=== PATIENT | male | born 1965 | race Two or more races ===

== ENCOUNTER 2020-08-06 18:12 | Inpatient (IN) | payer MEDICAID ==
[~2020-08-06] VITALS: Ht 182.9 cm; Wt 86.2 kg
[2020-08-06] MEDS ORDERED: METF-440 PO (19:16)
[2020-08-06] MEDS ORDERED: ZINC220C6 PO (19:16)
[2020-08-06] MEDS ORDERED: BISA10SU11 RC (19:16)
[2020-08-06] MEDS ORDERED: ACET-868 PO (19:16)
[2020-08-06] MEDS ORDERED: TEMA22.5 PO (19:16)
[2020-08-06] MEDS ORDERED: ASCO-352 PO (19:16)
[2020-08-06] MEDS ORDERED: CRAN450C PO (19:16)
[2020-08-06] MEDS ORDERED: ACET-2605 PO (19:16)
[2020-08-06] MEDS ORDERED: AMIN30LI2 PO (19:16)
[2020-08-06] MEDS ORDERED: INSU100V39 SQ (19:16)
[2020-08-06] MEDS ORDERED: SENN-261 PO (19:16)
[2020-08-06] MEDS ORDERED: MULT-447 PO (19:16)
[2020-08-06] MEDS ORDERED: POLY17PO4 PO (19:16)
[2020-08-06] MEDS ORDERED: NA P133E RC (19:16)
[2020-08-06] MEDS ORDERED: METH10TA2 PO (19:16)
[2020-08-06] MEDS ORDERED: CEFEPIME 1 GM in IV D5W 50 ML IV ONE (19:30)
[2020-08-06] MEDS ORDERED: VANCOMYCIN 1 GM in IV D5W 250 ML IV ONE (19:30)
[2020-08-06] MEDS ORDERED: DEXAMETHASONE SOD PHOSPHATE 10 MG/ML VIAL IV ONE (19:30)
[2020-08-06 19:31] LABS: ABG OXYGEN SATURATION 99.4 % (92.0-98.5); ABG PCO2 34.2 mmHg (35.0-45.0); ABG PH 6.828 (7.350-7.450); ABG PO2 317.9 mmHg (75.0-100.0); AaDO2 360.9 mmHg; COHb 0.7 % (0.5-1.5); O2Hb 98.7 % (94.0-97.0); SITE, ABG Left Radial
[2020-08-06] MEDS ORDERED: SODIUM BICARBONATE SYR 50 MEQ/50 ML DISP.SYRIN ONE ×2 (19:39→23:53)
[2020-08-06 19:42] LABS: BASOPHILS # (AUTO) 0.1 /CMM (0.0-0.2); BASOPHILS % (AUTO) 0.4 % (0.0-2.0)
[2020-08-06] MEDS ORDERED: DEXAMETHASONE SOD PHOSPHATE 10 MG/ML VIAL ONE (19:44)
[2020-08-06 19:45] LABS: BILIRUBIN,URINE MODERATE (NEGATIVE); COLOR,URINE YELLOW (YELLOW); LEUKOCYTE ESTERASE ,URINE MODERATE (NEGATIVE); NITRITE, URINE POSITIVE (NEGATIVE); PH,URINE 6.5 (5.0-8.0); PROTEIN,URINE 100 mg/dl (NEGATIVE); UGLUCOSE 100 MG/DL mg/dL (NEGATIVE); UROBILINOGEN,URINE 0.2 EU/dL (0.2)
[2020-08-06] MEDS ORDERED: CEFEPIME 1 GM VIAL ONE (19:45)
[2020-08-06] MEDS ORDERED: VANCOMYCIN 1 GM VIAL ONE (19:45)
[2020-08-06 19:49] LABS: HEMATOCRIT 28 % (39-51); HEMOGLOBIN 8.1 g/dL (13.5-17.5); LYMPHOCYTES # (AUTO) 1.1 /CMM (0.8-4.8); LYMPHOCYTES % (AUTO) 3.9 % (20.0-44.0); MEAN CORPUSCULAR HGB CONC 29 g/dl (31.0-36.0); MEAN CORPUSCULAR VOLUME 98 fL (80-96); MONOCYTES # (AUTO) 0.6 /CMM (0.1-1.30); MONOCYTES % (AUTO) 2.2 % (2.0-12.0); NEUTROPHILS # (AUTO) 26.3 /CMM (1.8-8.9); NEUTROPHILS % (AUTO) 93.5 % (43.0-81.0); PLATELET COUNT (AUTO) 460 /CMM (150-450); RED BLOOD CELL COUNT(AUTO) 2.89 MIL/uL (4.5-6.0); WHITE BLOOD COUNT (AUTO) 28.1 K/uL (4.3-11.0)
[2020-08-06] MEDS ORDERED: SODIUM BICARBONATE SYR 50 MEQ/50 ML DISP.SYRIN IV ONE (20:00)
[2020-08-06 20:04] LABS: WBC,URINE TOO NUMEROUS TO COUN /HPF (0-3)
[2020-08-06 20:05] LABS: BACTERIA,URINE 2+ /HPF (None Seen); SQUAMOUS EPITHELIAL CELL,UR Rare /HPF (None Seen)
[2020-08-06 20:07] LABS: ALANINE AMINOTRANSFERASE 22 U/L (12-78); ALBUMIN 1.5 g/dL (3.4-5.0); ALKALINE PHOSPHATASE 101 U/L (46-116); ASPARTATE AMINOTRANSFERASE 41 U/L (15-37); BILIRUBIN,DIRECT 0.2 mg/dL (0.0-0.2); BILIRUBIN,TOTAL 0.5 mg/dL (0.2-1.0); CALCIUM, SERUM 8.8 mg/dL (8.5-10.1); CHLORIDE 92 mmol/L (98-107); GLUCOSE 240 mg/dL (74-106); SODIUM SERUM 134 mmol/L (136-145); TOTAL PROTEIN, SERUM 5.3 g/dL (6.4-8.2)
--- NOTE | 2020-08-06 20:10 | NUR ---
221 BUN 8.2 K 10 CR
[2020-08-06 20:11] LABS: POTASSIUM 8.2 mmol/L (3.5-5.1)
[2020-08-06 20:12] LABS: CARBON DIOXIDE 10 mmol/L (21-32); UREA NITROGEN, BLOOD 221 mg/dL (7-18)
[2020-08-06] MEDS ORDERED: CALCIUM CHLORIDE 1,000 MG/10 ML DISP.SYRIN IV ONE (20:30)
[2020-08-06] MEDS ORDERED: INSULIN REGULAR, HUMAN 100 UNIT/ML 10 ML VIAL IV ONE (20:30)
[2020-08-06] MEDS ORDERED: DEXTROSE 50%-WATER 50 ML DISP.SYRIN IVP ONE (20:30)
[2020-08-06] MEDS ORDERED: NOREPINEPHRINE 8 MG in IV NS 0.9% 242 ML IV STA (20:33)
--- NOTE | 2020-08-06 20:34 | NUR ---
dr. mera aware of pt current vitals
[2020-08-06] MEDS ORDERED: CALCIUM CHLORIDE 1,000 MG/10 ML DISP.SYRIN ONE (20:37)
[2020-08-06] MEDS ORDERED: DEXTROSE 50%-WATER 50 ML DISP.SYRIN ONE (20:37)
[2020-08-06] MEDS ORDERED: INSULIN REGULAR, HUMAN 100 UNIT/ML 10 ML VIAL ONE (20:38)
--- NOTE | 2020-08-06 20:47 | NUR ---
LAB CALLED REGARDING NEGATIVE COVID RESULT.
[2020-08-06] MEDS ORDERED: NOREPINEPHRINE 4 MG/4 ML AMPUL IV ONE (20:49)
--- NOTE | 2020-08-06 20:51 | NUR ---
FEMI COLBERT PAGED PER ER ORDER.
--- NOTE | 2020-08-06 20:57 | NUR ---
DAKOTA GODINEZ TALKING TO DR. KAHN REGARDING PT.
--- NOTE | 2020-08-06 21:06 | NUR ---
DAKOTA GODINEZ TALKING TO DR. HYLTON REGARDING PT.
--- NOTE | 2020-08-06 21:09 | NUR ---
DR. GREENE SPEAKING WITH DR. ARREAGA
[2020-08-06] MEDS ORDERED: HEPARIN SODIUM, PORCINE 5000 UNITS/1 ML VIAL ONE (21:13)
--- NOTE | 2020-08-06 21:24 | NUR ---
STOOL SAMPLE SENT TO LAB
[2020-08-06] MEDS ORDERED: IV NS 0.9% 1,000 ML BAG IV ONE (21:30)
[2020-08-06 21:48] LABS: OCCULT BLOOD STOOL POSITIVE (NEGATIVE)
[2020-08-06] MEDS ORDERED: VASOPRESSIN INJ 40 UNIT in IV NS 0.9% 38 ML IV STA (22:04)
[2020-08-06] MEDS ORDERED: PHENYLEPHRINE 50 MG in IV NS 0.9% 245 ML IV STA (22:04)
--- NOTE | 2020-08-06 22:16 | NUR ---
US AT [facility].
--- NOTE | 2020-08-06 22:22 | NUR ---
REPORT GIVEN TO LANCE AT ICU
--- NOTE | 2020-08-06 22:26 | NUR ---
US TECH AT BED SIDE
--- NOTE | 2020-08-06 22:30 | NUR ---
PLAYGROUND EQUIPMENT ERECTOR, RECEIVED THE PT FROM ER VIA RNEY. PT IS ORALLY INTUBATED, DOES NOT FOLLOW COMMANDS. PT IS VERY UNSTABLE. ACCORDING TO THE GENERATION ENGINEERING TECHNOLOGIST PT HAS SACRUM AND [id number] WOUND. PT IS VERY UNSTABLE, NOT TURN THE PT. ETT 7.5,[id number].,AC 16,TV 500. FIO2 100, SAT 95%. HARDWOOD FLOORING SPECIALIST SHOWING S TACH. FC PATENT. HEMATURIA PRESENT. WILL CONTINUE TO MONITOR VITALS.
--- NOTE | 2020-08-06 22:31 | NUR ---
DR LOZADA (HOSPITALIST) AT BED SIDE
--- NOTE | 2020-08-06 22:45 | NUR ---
10MG OF ETOMIDATE FOLLOWED BY 80MG OF ROCURINIUM GIVEN IV PER DR. GREENE'S ORDER AT BED SIDE FOR INTUBATION
--- NOTE | 2020-08-06 22:55 | NUR ---
RT NOTES PT ORALLY INTUBATED BY DR GREENE WITH 7.5 ETT SECURED AT 23CM AT THE LIP LINE. PT PLACED ON [facility] VENT ON ORDERED SETTINGS AC MODE, RATE 16, VT 500, FIO2 100%, PEEP +5. HEAT AND VENT AIRCRAFT MECHANIC DONE. EQUAL CHEST RISE NOTED, MIST IN TUBE NOTED. ALARMS SET AND AUDIBLE. AMBUBAG AT BEDSIDE. VENT PLUGGED INTO RED OUTLET. WILL CONT TO MONITOR. Addendum: 08/07/20 at 0054 by ROSSANA RAI RT Amended: Links added.
--- NOTE | 2020-08-06 22:58 | NUR ---
OG INSERTED W/ GASTRIC JUICE REDRAW
--- NOTE | 2020-08-06 22:59 | NUR ---
XR AT BED SIDE.
[2020-08-06] MEDS ORDERED: MORPHINE SULFATE INJ 2 MG/ML DISP.SYRIN IV PRN (23:00)
[2020-08-06] MEDS ORDERED: Z GUARD REMEDY 2 OZ OINT TP PRN (23:00)
[2020-08-06] MEDS ORDERED: DEXTROSE 50%-WATER 50 ML DISP.SYRIN IV PRN (23:00)
[2020-08-06] MEDS ORDERED: IV D5/ 0.9% NACL 1,000 ML IV PRN (23:00)
[2020-08-06] MEDS ORDERED: ONDANSETRON HCL/PF 4 MG/2 ML VIAL IVP PRN (23:00)
[2020-08-06] MEDS ORDERED: ACETAMINOPHEN 650 MG/SUPP.RECT RC PRN (23:00)
--- NOTE | 2020-08-06 23:05 | NUR ---
DR ROBERSON APPROVED OG AND ET PLACEMENT ON CXR
--- NOTE | 2020-08-06 23:23 | NUR ---
PT WAS TRANSFERRED TO ICU UNDER ACLS
[2020-08-06] MEDS ORDERED: PHENYLEPHRINE 10 MG/ML VIAL ONE (23:34)
[2020-08-07] VITALS (90 sets, daily range): BP systolic 64–149; BP diastolic 15–76
[2020-08-07] MEDS ORDERED: VASOPRESSIN INJ 20 UNIT/ML VIAL ONE (00:11)
[2020-08-07 00:23] LABS: ABG BASE EXCESS -19.8 mmol/L; ABG OXYGEN SATURATION 96.3 % (92.0-98.5); ABG PCO2 53.6 mmHg (35.0-45.0); ABG PH 6.936 (7.350-7.450); ABG PO2 124.2 mmHg (75.0-100.0); AaDO2 535.2 mmHg; COHb 1.1 % (0.5-1.5); MetHb 0.2 % (0.0-1.5); SITE, ABG Left Radial; VENT MODE, BG AC 16 500 100% +5
[2020-08-07] MEDS: Sodium Bicarbonate 150 MEQ in IV D5W 1,000 ML IV PRN ×2 (00:27→10:54)
[2020-08-07] MEDS ORDERED: NOREPINEPHRINE 4 MG/4 ML AMPUL IV ONE (00:45)
[2020-08-07] MEDS: NOREPINEPHRINE 32 MG in IV NS 0.9% 218 ML IV PRN ×2 (01:10→12:41)
[2020-08-07] MEDS: INSULIN REGULAR, HUMAN 100 UNIT/ML 3 ML VIAL SQ PRN ×3 (01:29→18:08)
[2020-08-07 01:54] LABS: CALCIUM, SERUM 7.6 mg/dL (8.5-10.1)
[2020-08-07 01:59] LABS: POTASSIUM 6.8 mmol/L (3.5-5.1)
[2020-08-07 02:00] LABS: CREATININE 7.6 mg/dL (0.6-1.3)
[2020-08-07] MEDS ORDERED: INSULIN REGULAR, HUMAN 100 UNIT/ML 3 ML VIAL IV ONE ×2 (03:00→06:30)
[2020-08-07] MEDS ORDERED: PHENYLEPHRINE 10 MG/ML VIAL ONE (03:36)
[2020-08-07] MEDS: PHENYLEPHRINE 100 MG in IV NS 0.9% 240 ML IV PRN ×3 (03:49→20:36)
[2020-08-07 04:50] LABS: BASOPHILS # (AUTO) 0.1 /CMM (0.0-0.2); BASOPHILS % (AUTO) 0.4 % (0.0-2.0); EOSINOPHILS % (AUTO) 0.6 % (0.0-6.0); HEMATOCRIT 23 % (39-51); LYMPHOCYTES # (AUTO) 0.8 /CMM (0.8-4.8); MEAN CORPUSCULAR HGB CONC 30 g/dl (31.0-36.0); MEAN CORPUSCULAR VOLUME 97 fL (80-96); MONOCYTES # (AUTO) 0.6 /CMM (0.1-1.30); MONOCYTES % (AUTO) 2.1 % (2.0-12.0); NEUTROPHILS # (AUTO) 25.6 /CMM (1.8-8.9); NEUTROPHILS % (AUTO) 93.9 % (43.0-81.0); PLATELET COUNT (AUTO) 336 /CMM (150-450); RED BLOOD CELL COUNT(AUTO) 2.42 MIL/uL (4.5-6.0); WHITE BLOOD COUNT (AUTO) 27.2 K/uL (4.3-11.0)
[2020-08-07 04:54] LABS: HEMOGLOBIN 6.9 g/dL (13.5-17.5)
[2020-08-07 05:16] LABS: CALCIUM, SERUM 7.9 mg/dL (8.5-10.1); MAGNESIUM 2.5 mg/dL (1.8-2.4); THYROID STIMULATING HORMONE 0.395 uIU/mL (0.358-3.74)
[2020-08-07 05:29] LABS: BAND % (MANUAL) 4 % (0.0-5.0); LYMPHOCYTES % (MANUAL) 4 % (16-48); MONOCYTES % (MANUAL) 6 % (0-11.0); NEUTROPHILS % (MANUAL) 86 (42-76)
--- NOTE | 2020-08-07 05:32 | NUR ---
RT NOTE LATE ENTRY: ETT advanced + 3CM per MD orders. ETT TUBE SECURED AT 26CM Addendum: 08/07/20 at 0532 by SEGUN VARNER RT Amended: Links added.
[2020-08-07 05:33] LABS: POTASSIUM 7.3 mmol/L (3.5-5.1)
[2020-08-07 05:34] LABS: CREATININE 7.5 mg/dL (0.6-1.3)
[2020-08-07] MEDS: BLOOD SUGAR DIAGNOSTIC 1 EACH STRIP IN SCH ×4 (06:27→18:06)
--- NOTE | 2020-08-07 07:05 | NUR ---
superintendent horticulture, on admission not taken the picture. because pt was very unstable with 3 pressers. endorse to day shift RN. IF POSSIBLE TAKE PICTURE
[2020-08-07] MEDS ORDERED: INSULIN REGULAR, HUMAN 100 UNIT/ML 3 ML VIAL IV SCH (07:30)
--- NOTE | 2020-08-07 08:02 | NUR ---
CHEMICAL MACHINE TENDER. S/P INTUBATION ABG RESULT MD LOZADA MADE AWARE
--- NOTE | 2020-08-07 08:05 | NUR ---
UNION STEWARD. ETT 3CMS ADJUSTED.
[2020-08-07] MEDS: PANTOPRAZOLE 40 MG VIAL IV SCH (08:10)
--- NOTE | 2020-08-07 08:42 | NUR ---
WOUND CARE CONSULT: REVIEWED CHART,NURSING DOCUMENTATION AND SPOKE WITH NURSING STAFF AND MRI SPECIAL PROCEDURES TECHNOLOGIST. PT HAS BEEN UNSTABLE TO BE TURNED FOR SKIN ASSESSMENT AND PHOTOS PER MRI SPECIAL PROCEDURES TECHNOLOGIST. RECOMMENDATIONS MADE FOR SKIN PROTECTION. DISCUSSED WITH NURSING STAFF. NURSING STAFF TO ATTEMPT TO SEE PT FOR SKIN ASSESSMENT IF STABLE TO BE TURNED. MD IN AGREEMENT WITH PLAN OF CARE.
[2020-08-07] MEDS ORDERED: CEFEPIME 2 GM in IV D5W 100 ML IV SCH (09:00)
[2020-08-07] MEDS ORDERED: SODIUM BICARBONATE SYR 50 MEQ/50 ML DISP.SYRIN IV ONE (09:30)
--- NOTE | 2020-08-07 09:45 | NUR ---
RN NOTES DIALYSIS NURSE ON UNIT, CONTINUED THE BLOOD TRANSFUSION THRU DIALYSIS MACHINE BY DIALYSIS NURSE, NO SIGNS OF DISTRESS AT THIS TIME. V/S STABLE WITH 3 PRESSOR. WILL CONTINUE TO MONITOR.
[2020-08-07] MEDS ORDERED: ROCURONIUM BROMIDE 50 MG/5 ML IV ONE (10:09)
[2020-08-07] MEDS ORDERED: ETOMIDATE 2 MG/ML VIAL IV ONE (10:09)
[2020-08-07 10:15] LABS: ABG OXYGEN SATURATION 91.9 % (92.0-98.5); ABG PCO2 40.4 mmHg (35.0-45.0); ABG PH 7.149 (7.350-7.450); ABG PO2 78.9 mmHg (75.0-100.0); AaDO2 593.7 mmHg; COHb 2.2 % (0.5-1.5); MetHb 1.2 % (0.0-1.5); O2Hb 88.8 % (94.0-97.0); PEEP,BG 5 cm H2O; SITE, ABG Right Brachial; VENT MODE, BG AC 100%; VT, ABG 500 mL
--- NOTE | 2020-08-07 10:15 | NUR ---
RN NOTES DIALYSIS NURSE STOPPED THE DIALYSIS WITH NO OUTPUT DUE TO SBP DROPPING TO 70'S AND HR ON 50'S, ALL PRESSORS ON MAX, BLOOD TRANSFUSION DONE. WILL CONTINUE TO MONITOR.
[2020-08-07] MEDS: HYDROCORTISONE SOD SUCCINATE 100 MG/2 ML VIAL IV SCH ×2 (10:29→20:35)
[2020-08-07] MEDS: PROPOFOL 10MG/ML 50ML 50 ML IV PRN ×5 (10:55→22:43)
[2020-08-07] MEDS ORDERED: SODIUM POLYSTYRENE SULFONATE 15 G/60 ML BOTTLE PO ONE ×2 (12:30→14:00)
[2020-08-07 14:11] LABS: D-DIMER 3.97 mg/L(FEU (0.17-0.50)
[2020-08-07] MEDS: Sodium Bicarbonate 100 MEQ in IV 1/2NS 1000 ML 1,000 ML IV PRN (17:36)
[2020-08-07] MEDS: VASOPRESSIN INJ 40 UNIT in IV NS 0.9% 38 ML IV PRN (18:41)
--- NOTE | 2020-08-07 19:49 | NUR ---
IT SECURITY ADMINISTRATOR. INITIAL ASSESSMENT. RECEIVED THE PT REST ON THE BED. ORALLY INTUBATED. SEDATED WITH DIPRIVAN. ETT 7.5,AC 32,LIP 23CM,TV 500,FIO2 80%. SAT 98%. SOCIAL MEDIA MARKETING ANALYST SHOWING S TACH. IV RT AND LT HAND 22 AND 20G. RT FEMORAL HD CATH RT NARE NGT INTACT. CLAMPED. FC PATENT. LEVOPHED 0.2MCG/KG/MIN, ASHWIN 3MCG/KG/MIN,PALAK 0.04 U/HDIPRIVAN 50MCG/KG/MIN,IVF 1/2NS IN 100MEQ BICARB 50ML/H. WILL CONTINUE TO MONITOR VITALS
--- NOTE | 2020-08-07 22:30 | NUR ---
CRAB CATCHER, DAY SHIFT NOT TAKEN PICTURE. PICTURE TAKEN AT 1999. WOUND CONSULTATION AND [employer] MATTRESS ORDERED.
[2020-08-08] VITALS (83 sets, daily range): BP systolic 56–163; BP diastolic 41–115
[2020-08-08] MEDS: INSULIN REGULAR, HUMAN 100 UNIT/ML 3 ML VIAL SQ PRN ×4 (01:28→17:37)
--- NOTE | 2020-08-08 03:01 | NUR ---
TV NEWS DIRECTOR, REMAINING SAME VENT SETTING TOLERATED WELL.WILL CONTINUE TO MONITOR
[2020-08-08] MEDS: PROPOFOL 10MG/ML 50ML 50 ML IV PRN ×6 (04:36→21:44)
[2020-08-08] MEDS: PHENYLEPHRINE 100 MG in IV NS 0.9% 240 ML IV PRN ×3 (04:37→21:45)
[2020-08-08] MEDS: HYDROCORTISONE SOD SUCCINATE 100 MG/2 ML VIAL IV SCH ×3 (04:39→20:58)
[2020-08-08 04:55] LABS: BASOPHILS # (AUTO) 0.1 /CMM (0.0-0.2); BASOPHILS % (AUTO) 0.3 % (0.0-2.0); HEMATOCRIT 23 % (39-51); HEMOGLOBIN 7.9 g/dL (13.5-17.5); LYMPHOCYTES # (AUTO) 0.8 /CMM (0.8-4.8); LYMPHOCYTES % (AUTO) 4.2 % (20.0-44.0); MEAN CORPUSCULAR HGB CONC 35 g/dl (31.0-36.0); MEAN CORPUSCULAR VOLUME 92 fL (80-96); MONOCYTES # (AUTO) 0.8 /CMM (0.1-1.30); NEUTROPHILS % (AUTO) 91.5 % (43.0-81.0); PLATELET COUNT (AUTO) 207 /CMM (150-450); RED BLOOD CELL COUNT(AUTO) 2.47 MIL/uL (4.5-6.0); WHITE BLOOD COUNT (AUTO) 19.7 K/uL (4.3-11.0)
[2020-08-08 05:09] LABS: CALCIUM, SERUM 7.1 mg/dL (8.5-10.1); CREATININE 4.3 mg/dL (0.6-1.3); MAGNESIUM 1.9 mg/dL (1.8-2.4); PHOSPHORUS 3.5 mg/dL (2.5-4.9); POTASSIUM 5.2 mmol/L (3.5-5.1)
--- NOTE | 2020-08-08 06:09 | NUR ---
SPEECH PATHOLOGIST. REMAINING SAME VENT SETTING TOLERATED WELL.AT 98%. NO ACUTE DISTRESS NOTED. SALES REPRESENTATIVE MARINE SUPPLIES SHOWING S TACH.IV RT HAND AND RT FEMORAL HD CATH. ASHWIN ,LEVO, VASO, DIPRIVAN AND BICARB DRIP RUNNING, PALLAVI SOFT WRIST RESTRAINT CHECKED AND RELEASED, NO INJURY OR REDNESS NOTED. FC PATENT. HOB ELEVATED. RT NARE NGT INTACT. WILL CONTINUE TO MONITOR VITALS.
[2020-08-08] MEDS: BLOOD SUGAR DIAGNOSTIC 1 EACH STRIP IN SCH ×4 (06:18→17:36)
[2020-08-08] MEDS: VASOPRESSIN INJ 40 UNIT in IV NS 0.9% 38 ML IV PRN ×2 (06:33→10:40)
--- NOTE | 2020-08-08 06:36 | NUR ---
GRAZING AIDE, RADIOLOGY CALLED FOR X RAY CRITICAL RESULT LT LARGE PNEUMOTHORAX WITH MEDIASTINUM APPEARING SHIFTED TO THE RT CONCERNING FOR TENSION PNEUMOTHORAX, NOTIFIED MD LOZADA. WAITING FOR CALL BACK
[2020-08-08 07:49] LABS: ABG BASE EXCESS -3.3 mmol/L; ABG OXYGEN SATURATION 99.3 % (92.0-98.5); ABG PCO2 29.4 mmHg (35.0-45.0); ABG PH 7.454 (7.350-7.450); ABG PO2 224.4 mmHg (75.0-100.0); AaDO2 315.1 mmHg; COHb 1.4 % (0.5-1.5); MetHb 0.3 % (0.0-1.5); O2Hb 97.6 % (94.0-97.0); PEEP,BG 0 cm H2O; SITE, ABG Right Radial; VT, ABG 500 mL
--- NOTE | 2020-08-08 07:54 | NUR ---
WOUND CARE CONSULT: REVIEWED CHART, NURSING DOCUMENTATION AND PHOTOS WHICH INDICATE LARGE FULL THICKNESS WOUNDS TO SACRUM AND RT BUTTOCK(DOCUMENTED STAGE 4 ULCERS PER SENDING FACILITY), WELL DISCOLORATION/DEEP TISSUE INJURIES TO OCCIPITAL AREA, LEFT ARM AND RT SHOULDER, ALL PRESENT ON ADMISSION. RECOMMEND SURGICAL CONSULT. DR ROBERTO NOTIFIED OF CONSULT REQUEST. ALL SKIN PROTECTION RECOMMENDATIONS DISCUSSED WITH NURSING STAFF INCLUDING FIRST STEP LOW AIRLOSS MATTRESS (ON ORDER). MD IN AGREEMENT WITH PLAN OF CARE.
[2020-08-08] MEDS: NOREPINEPHRINE 32 MG in IV NS 0.9% 218 ML IV PRN (08:21)
[2020-08-08] MEDS: CEFEPIME 1 GM in IV D5W 50 ML IV SCH (08:36)
[2020-08-08] MEDS: PANTOPRAZOLE 40 MG VIAL IV SCH (08:36)
[2020-08-08] MEDS: Sodium Bicarbonate 100 MEQ in IV 1/2NS 1000 ML 1,000 ML IV PRN (09:26)
--- NOTE | 2020-08-08 09:27 | NUR ---
SS consult requested for this patient due to lack of responsible libertarian. JENN spoke with the pt.'s nurse, Shana who stated no responsible libertarian has been calling for this pt. JENN called the pt.'s "counselor" Maxine Palenciaoz [phone] who is on the facesheet and left voicemail with JENN call back number. JENN called [facility] [[address] [place], [address] ] and requested to speak to a nurse or admitting to gather responsible libertarian info. However, SW was put on hold and never transferred, no option to leave voicemail. JENN called the Public Guardian;s Office and spoke to Officer on Duty, Myla [phone] to make a referral for probate conservatorship. Myla faxed JENN referral forms. This JENN or Elizabeth BARAJAS to complete and fax back to [phone] Attn: Court Services Unit. JENN to mail original forms to Office of the Public Guardian [address] [place] [phone] Attn: Court Services Unit. SW will be available as needed.
--- NOTE | 2020-08-08 13:03 | NUR ---
JENN left a message with [employer] hotel or motel receptionist at [facility] for an ambulatory services representative from [facility] to return a call to this SW regarding this patient.
[2020-08-08] MEDS ORDERED: ADENOSINE 6 MG/2 ML VIAL IVP ONE (13:30)
[2020-08-08] MEDS ORDERED: DILTIAZEM HCL IV 125 MG in IV NS 0.9% 100 ML IV PRN (14:00)
[2020-08-08] MEDS ORDERED: DILTIAZEM HCL 50 MG IV IV ONE (14:00)
--- NOTE | 2020-08-08 14:17 | NUR ---
JENN contacted Brittany BARAJAS at [facility] regarding this patient. Brittany BARAJAS informed this JENN that Brittany would make calls to patient's contacts to attempt to find next of kin on behalf of this SW. Brittany stated that she would give this SW a call back with more information. JENN remains available for all needs regarding this patient.
--- NOTE | 2020-08-08 14:35 | NUR ---
This JENN was contacted by Brittany BARAJAS at [facility] regarding this patient. Per Brittany, patient has a brother by the name of Ángel Keys and Yvonne (ex-) . Per Brittany, patient is legally from [place]. JENN left a voicemail for Ángel Keys with this SW contact information. Plan: JENN will follow-up with Ángel if there is no follow-up. JENN remains available for all needs regarding this patient.
--- NOTE | 2020-08-08 17:00 | NUR ---
RN NOTES 6675 CARDIOVERSION DONE. PT SEDATED. P[T CONVERTED TO SINUS RHYTHM. WILL CLOSELY MONITOR
[2020-08-08] MEDS: DAKINS QUARTER STRENGTH (0.125%) 480 ML BOTTLE TOP SCH (18:30)
--- NOTE | 2020-08-08 19:00 | NUR ---
RN CLOSING NOTES PT REMAINS INTUBATED, ON VENT. NO RESPIRATORY DISTRESS NOTED. PICC LINE IN PLACE. REMAINS ON LEVOPHED, ASHWIN AND VASO DRIP. TITRATED ACCORDINGLY. CHEST TUBE IN PLACE. KEPT COMFORTABLE. WILL ENDORSE FOR CONTINUITY OF CARE.
[2020-08-08] MEDS ORDERED: VANCOMYCIN 0.75 GM in IV D5W 250 ML IV SCH ×4 (20:00)
--- NOTE | 2020-08-08 20:54 | NUR ---
REHAB DIRECTOR OCCUPATIONAL THERAPIST NOTES CALLED AND SPOKE TO ADMITTING REGARDING BIRTHDATE DISCREPANCY, LAB UNABLE TO DRAW VANCOMYCIN LEVEL DUE TO DISCREPANCY. PER ADMITTING DEPARTMENT, THEY WILL FIX THE BIRTHDATE AND PRINT OUT A NEW WRISTBAND. LABORATORY MADE AWARE THAT NEW WRISTBAND WILL BE AVAILABLE IN APPROXIMATELY 20 MINUTES
[2020-08-09] VITALS (103 sets, daily range): BP systolic 67–185; BP diastolic 20–116
[2020-08-09] MEDS: BLOOD SUGAR DIAGNOSTIC 1 EACH STRIP IN SCH ×5 (01:50→23:20)
[2020-08-09] MEDS: INSULIN REGULAR, HUMAN 100 UNIT/ML 3 ML VIAL SQ PRN ×5 (01:51→23:22)
[2020-08-09] MEDS: VASOPRESSIN INJ 40 UNIT in IV NS 0.9% 38 ML IV PRN ×2 (01:59→13:56)
[2020-08-09] MEDS: PROPOFOL 10MG/ML 50ML 50 ML IV PRN ×7 (02:30→20:30)
[2020-08-09 04:29] LABS: BASOPHILS % (AUTO) 0.2 % (0.0-2.0); HEMATOCRIT 21 % (39-51); LYMPHOCYTES # (AUTO) 0.5 /CMM (0.8-4.8); LYMPHOCYTES % (AUTO) 2.4 % (20.0-44.0); MEAN CORPUSCULAR VOLUME 92 fL (80-96); MONOCYTES # (AUTO) 0.8 /CMM (0.1-1.30); MONOCYTES % (AUTO) 3.3 % (2.0-12.0); NEUTROPHILS # (AUTO) 21.8 /CMM (1.8-8.9); NEUTROPHILS % (AUTO) 94.1 % (43.0-81.0); PLATELET COUNT (AUTO) 188 /CMM (150-450); RED BLOOD CELL COUNT(AUTO) 2.28 MIL/uL (4.5-6.0); WHITE BLOOD COUNT (AUTO) 23.2 K/uL (4.3-11.0)
[2020-08-09 05:01] LABS: CALCIUM, SERUM 7.1 mg/dL (8.5-10.1); CREATININE 2.5 mg/dL (0.6-1.3); MAGNESIUM 1.9 mg/dL (1.8-2.4); PHOSPHORUS 3.1 mg/dL (2.5-4.9); POTASSIUM 3.5 mmol/L (3.5-5.1)
[2020-08-09 05:22] LABS: MEAN CORPUSCULAR HGB CONC 33 g/dl (31.0-36.0)
[2020-08-09 05:24] LABS: HEMOGLOBIN 6.9 g/dL (13.5-17.5)
[2020-08-09] MEDS: PHENYLEPHRINE 100 MG in IV NS 0.9% 240 ML IV PRN ×2 (05:52→13:56)
[2020-08-09 05:53] LABS: BAND % (MANUAL) 5 % (0.0-5.0); LYMPHOCYTES % (MANUAL) 1 % (16-48); NEUTROPHILS % (MANUAL) 92 (42-76)
[2020-08-09 05:54] LABS: MONOCYTES % (MANUAL) 2 % (0-11.0)
[2020-08-09] MEDS: HYDROCORTISONE SOD SUCCINATE 100 MG/2 ML VIAL IV SCH ×3 (06:09→20:29)
--- NOTE | 2020-08-09 07:15 | NUR ---
RN CLOSING NOTES RECEIVED PT INTUBATED, ON VENT. NO RESPIRATORY DISTRESS NOTED. PICC LINE IN PLACE. REMAINS ON DIPRIVAN, LEVOPHED, ASHWIN AND VASO DRIP. WILL TITRATE ACCORDINGLY. IVF INFUSING. CHEST TUBE IN PLACE. VELEZ IN PLACE. BLE ELEVATED. FOR BLOOD TRANSFUSION 1 UNIT PRBC. WILL MONITOR
[2020-08-09] MEDS: Sodium Bicarbonate 100 MEQ in IV 1/2NS 1000 ML 1,000 ML IV PRN (07:44)
[2020-08-09] MEDS: DAKINS QUARTER STRENGTH (0.125%) 480 ML BOTTLE TOP SCH (08:18)
[2020-08-09] MEDS: CEFEPIME 1 GM in IV D5W 50 ML IV SCH (08:18)
[2020-08-09] MEDS: PANTOPRAZOLE 40 MG VIAL IV SCH (08:18)
[2020-08-09] MEDS: NOREPINEPHRINE 32 MG in IV NS 0.9% 218 ML IV PRN ×2 (09:53→09:58)
[2020-08-09] MEDS ORDERED: MANNITOL 12.5 GM/50 ML VIAL IV ONE (13:00)
[2020-08-09] MEDS: IV 1/2NS 1000 ML 1,000 ML IV PRN (14:09)
--- NOTE | 2020-08-09 16:19 | NUR ---
JENN contacted patient's ex- Yvonne to find information regarding next of kin. Per Yvonne, she and patient have been seperated for 8 years and patient has an 18 year-old son who is currently serving in the [employer]. Yvonne informed this SW that she may be able to contact the son should situation arise however Yvonne would like this to be the last resort. Yvonne informed this SW that the patient does not have a DPOA. Per Yvonne, patient's mother is alive. JENN will follow-up with Ángel Keys patient's brother for this SW to reach out to patient's mother who would be the next of kin should patient's son not be reachable. JENN will provide an update to JENN Weber and JENN Vazquez to follow-up regarding this patient. Director Geothermal Operations remains available for all needs regarding this patient.
--- NOTE | 2020-08-09 16:57 | NUR ---
SW could not reach patient's brother and could not leave a voicemail as mailbox was full. Ángel Keys patient's brother
[2020-08-09] MEDS ORDERED: CEFEPIME 2 GM in IV D5W 100 ML IV SCH (18:00)
--- NOTE | 2020-08-09 18:44 | NUR ---
RN CLOSING NOTES RECEIVED PT INTUBATED, ON VENT. NO RESPIRATORY DISTRESS NOTED. PICC LINE IN PLACE. REMAINS ON DIPRIVAN, LEVOPHED, ASHWIN AND VASO DRIP. TITRATED ACCORDINGLY. IVF INFUSING. CHEST TUBE IN PLACE. VELEZ IN PLACE. BLE ELEVATED. 1 UNIT PRBC GIVEN. NO TRANSFUSION REACTION NOTED. PT DID NOT TOLERATE HEMODIALYSIS. KEPT CLEAN AND DRY. TX PROVIDED ORDERED. BLE ELEVATED. WILL ENDORSE FOR CONTINUITY OF CARE
[2020-08-09] MEDS ORDERED: MEROPENEM 500 MG in IV NS 0.9% 50 ML IV SCH (19:00)
--- NOTE | 2020-08-09 19:30 | NUR ---
SUPERVISOR CAB NOTES RECEIVED PATIENT IN BED, SEDATED ON DIPRIVAN DRI, ORALLY INTUBATED ON MECHANICAL VENTILATION. SR ON MONITOR. VELEZ CATHETER DRAINING DARK YELLOW/GREEN COLORED URINE VIA GRAVITY. LEFT LATERAL CHEST TUBE TO -2OCM H20 SUCTION, NOTED WITH SEROSANGUINEOUS OUTPUT, NO BUBBLING NOTED IN CHAMBER
[2020-08-09] MEDS: MEROPENEM 1 G in IV NS 0.9% 100 ML IV SCH (21:07)
[2020-08-10] VITALS (80 sets, daily range): BP systolic 79–177; BP diastolic 26–117
[2020-08-10] MEDS ORDERED: VANCOMYCIN 1 GM in IV D5W 250 ML IV SCH ×2
[2020-08-10] MEDS: PROPOFOL 10MG/ML 50ML 50 ML IV PRN ×4 (00:32→08:42)
[2020-08-10] MEDS: IV 1/2NS 1000 ML 1,000 ML IV PRN ×3 (00:32→22:28)
--- NOTE | 2020-08-10 02:00 | NUR ---
GLASS FRAME FITTER NOTES FULL BED BATH RENDERED, CHEST TUBE DRESSING CHANGED, NO COMPLICATIONS NOTED, TOELRATED WELL. ON GOING MONITORING
[2020-08-10 04:40] LABS: BASOPHILS # (AUTO) 0.1 /CMM (0.0-0.2); BASOPHILS % (AUTO) 0.2 % (0.0-2.0); EOSINOPHILS % (AUTO) 0.1 % (0.0-6.0); HEMATOCRIT 25 % (39-51); HEMOGLOBIN 8.9 g/dL (13.5-17.5); LYMPHOCYTES # (AUTO) 0.8 /CMM (0.8-4.8); LYMPHOCYTES % (AUTO) 2.7 % (20.0-44.0); MEAN CORPUSCULAR HGB CONC 36 g/dl (31.0-36.0); MEAN CORPUSCULAR VOLUME 91 fL (80-96); MONOCYTES # (AUTO) 0.4 /CMM (0.1-1.30); MONOCYTES % (AUTO) 1.5 % (2.0-12.0); NEUTROPHILS # (AUTO) 27.5 /CMM (1.8-8.9); NEUTROPHILS % (AUTO) 95.5 % (43.0-81.0); PLATELET COUNT (AUTO) 92 /CMM (150-450); WHITE BLOOD COUNT (AUTO) 28.8 K/uL (4.3-11.0)
[2020-08-10 04:55] LABS: CALCIUM, SERUM 6.8 mg/dL (8.5-10.1); CREATININE 1.3 mg/dL (0.6-1.3); MAGNESIUM 1.8 mg/dL (1.8-2.4); PHOSPHORUS 1.9 mg/dL (2.5-4.9)
--- NOTE | 2020-08-10 05:00 | NUR ---
VERTICAL PUNCH OPERATOR NOTES NEOSYNEPHRINE DRIP TITRATED OFF. PATIENT REMAINS ON LEVOPHED AND VASOPRESSIN FOR BP SUPPORT. WILL CONTINUE CLOSE MONITORING
[2020-08-10 05:10] LABS: POTASSIUM 2.7 mmol/L (3.5-5.1)
[2020-08-10 05:29] LABS: LYMPHOCYTES % (MANUAL) 3 % (16-48); MONOCYTES % (MANUAL) 6 % (0-11.0); NEUTROPHILS % (MANUAL) 91 (42-76)
[2020-08-10 06:13] LABS: ABG OXYGEN SATURATION 98.5 % (92.0-98.5); ABG PCO2 30.2 mmHg (35.0-45.0); ABG PH 7.553 (7.350-7.450); ABG PO2 122.6 mmHg (75.0-100.0); AaDO2 199.9 mmHg; COHb 0.8 % (0.5-1.5); MetHb 0.3 % (0.0-1.5); O2Hb 97.4 % (94.0-97.0); PEEP,BG 0 cm H2O; SITE, ABG Right Radial; VENT MODE, BG AC 32 450 50% +0; VT, ABG 450 mL
[2020-08-10] MEDS: INSULIN REGULAR, HUMAN 100 UNIT/ML 3 ML VIAL SQ PRN ×3 (06:22→17:30)
[2020-08-10] MEDS: BLOOD SUGAR DIAGNOSTIC 1 EACH STRIP IN SCH ×3 (06:22→17:31)
[2020-08-10] MEDS: POTASSIUM CL. PREMIX PERIPHER. 50 ML IV SCH ×5 (06:25→10:26)
[2020-08-10] MEDS: HYDROCORTISONE SOD SUCCINATE 100 MG/2 ML VIAL IV SCH ×3 (06:26→21:10)
[2020-08-10] MEDS: VASOPRESSIN INJ 40 UNIT in IV NS 0.9% 38 ML IV PRN (08:06)
--- NOTE | 2020-08-10 08:24 | NUR ---
received pt from night shift manager, sedated on diprivan at 30mcg, SR, intubated, sat well, L chest tube no bobbling noted, f/c good output, HD pt, NG clamped, receiving vaso at 0.04units, and levo at 0.2mcg, v/s stable, no pain, pt turned and repositioned.
[2020-08-10] MEDS: MEROPENEM 1 G in IV NS 0.9% 100 ML IV SCH ×2 (09:16→21:09)
[2020-08-10] MEDS: FAMOTIDINE/PF INJ 20 MG/2 ML VIAL IV SCH ×2 (09:16→21:09)
[2020-08-10] MEDS: DAKINS QUARTER STRENGTH (0.125%) 480 ML BOTTLE TOP SCH (09:17)
--- NOTE | 2020-08-10 10:27 | NUR ---
VENT CHANGES BELOW PER DR. REZA: AC 24 VT 400 Addendum: 08/10/20 at 1028 by ADILIA TOWNSEND RT Amended: Links added.
[2020-08-10] MEDS: NOREPINEPHRINE 32 MG in IV NS 0.9% 218 ML IV PRN (11:34)
[2020-08-10] MEDS ORDERED: POTASSIUM CL. PREMIX PERIPHER. 50 ML IV SCH (12:00)
[2020-08-10] MEDS: PROPOFOL 100 ML IV PRN ×2 (12:36→21:25)
[2020-08-10] MEDS: POTASSIUM PHOSPHATE MM 7.5 MMOL in IV NS 0.9% 100 ML IV SCH ×2 (13:48→17:28)
--- NOTE | 2020-08-10 16:48 | NUR ---
pt is resting in the bed, sedated on Diprivan at 30mcg, SR, SB, receiving levo at 0.2mcg, good urine output, NG clamped, L chest tube intact no bobbling noted, v/s stable, no pain, pt cleaned, changed and repositioned.
[2020-08-10] MEDS: VANCOMYCIN 1 GM in IV D5W 250 ML IV SCH (17:28)
--- NOTE | 2020-08-10 23:52 | NUR ---
FIELD ASSEMBLY SUPERVISOR NOTES PATIENT ON LEVOPHED DRIP @ 0.15MCG/KG/MIN. SBP > 120, BUT HR NOTED TO DROP LOW 45BPM. CLAUDE STARKS, PROMOTION MANAGER NOTIFIED REGARDING HR. PER CLAUDE, START DOPAMINE DRIP TO KEEP SBP >90 AND HR > 60BPM. WILL TRANSITION PATIENT TO DOPAMINE DRIP ORDERED
[2020-08-11] VITALS (88 sets, daily range): BP systolic 46–147; BP diastolic 26–97
[2020-08-11] MEDS ORDERED: DOPamine 400MG/D5W 250ML RTU 250 ML ONE (00:17)
[2020-08-11] MEDS: DOPamine 400 MG in IV D5W 250 ML IV PRN ×4 (00:27→23:31)
[2020-08-11] MEDS: INSULIN REGULAR, HUMAN 100 UNIT/ML 3 ML VIAL SQ PRN ×5 (00:41→23:26)
[2020-08-11] MEDS: BLOOD SUGAR DIAGNOSTIC 1 EACH STRIP IN SCH ×5 (00:45→23:25)
[2020-08-11 05:48] LABS: BASOPHILS # (AUTO) 0.1 /CMM (0.0-0.2); BASOPHILS % (AUTO) 0.3 % (0.0-2.0); HEMATOCRIT 23 % (39-51); HEMOGLOBIN 7.8 g/dL (13.5-17.5); LYMPHOCYTES # (AUTO) 0.4 /CMM (0.8-4.8); LYMPHOCYTES % (AUTO) 1.4 % (20.0-44.0); MEAN CORPUSCULAR HGB CONC 34 g/dl (31.0-36.0); MEAN CORPUSCULAR VOLUME 91 fL (80-96); MONOCYTES # (AUTO) 0.2 /CMM (0.1-1.30); MONOCYTES % (AUTO) 0.8 % (2.0-12.0); NEUTROPHILS # (AUTO) 25.5 /CMM (1.8-8.9); NEUTROPHILS % (AUTO) 97.5 % (43.0-81.0); PLATELET COUNT (AUTO) 62 /CMM (150-450); RED BLOOD CELL COUNT(AUTO) 2.54 MIL/uL (4.5-6.0); WHITE BLOOD COUNT (AUTO) 26.2 K/uL (4.3-11.0)
[2020-08-11 06:05] LABS: BAND % (MANUAL) 9 % (0.0-5.0); EOSINOPHILS % (MANUAL) 2 % (0-4); LYMPHOCYTES % (MANUAL) 2 % (16-48); MONOCYTES % (MANUAL) 2 % (0-11.0); NEUTROPHILS % (MANUAL) 85 (42-76)
[2020-08-11 06:08] LABS: BILIRUBIN,TOTAL 1.2 mg/dL (0.2-1.0); CALCIUM, SERUM 7.4 mg/dL (8.5-10.1); MAGNESIUM 1.7 mg/dL (1.8-2.4); PHOSPHORUS 2.6 mg/dL (2.5-4.9); TOTAL PROTEIN, SERUM 4.4 g/dL (6.4-8.2)
--- NOTE | 2020-08-11 06:30 | NUR ---
CASE ASSEMBLER CLOSING NOTES PATIENT REMAINS ON MECHANICAL VENTILATION VIA ETT, TOLERATING SETTING PRESCRIBED. REMAINS SEDATED ON DIPRIVAN DRIP @ 30 MCG/KG/MIN. PATIENT ALSO ON DOPAMINE DRIP @ 5MCG/KG/MIN. LEFT LATERAL CHEST TUBE REMAINS INTACT, NO LEAK NOTED, TUBING SECURED, 20ML OF SEROUS FLUID OUTPUT THROUGHOUT SHIFT. VELEZ CATHETER DRAINING YELLOW URINE WITH SEDIMENTS VIA GRAVITY
[2020-08-11 06:50] LABS: ALBUMIN 1.1 g/dL (3.4-5.0); POTASSIUM 2.6 mmol/L (3.5-5.1)
[2020-08-11] MEDS: HYDROCORTISONE SOD SUCCINATE 100 MG/2 ML VIAL IV SCH ×3 (07:04→20:38)
[2020-08-11] MEDS: PROPOFOL 100 ML IV PRN ×3 (07:19→21:46)
[2020-08-11] MEDS: IV 1/2NS 1000 ML 1,000 ML IV PRN ×2 (08:03→18:37)
[2020-08-11] MEDS: MEROPENEM 1 G in IV NS 0.9% 100 ML IV SCH ×2 (08:15→20:41)
[2020-08-11] MEDS: FAMOTIDINE/PF INJ 20 MG/2 ML VIAL IV SCH ×2 (09:26→20:39)
[2020-08-11] MEDS: DAKINS QUARTER STRENGTH (0.125%) 480 ML BOTTLE TOP SCH (09:26)
[2020-08-11] MEDS: Magnesium 1GM/D5W 100ML PREMIX 100 ML IV SCH ×2 (10:41→12:06)
[2020-08-11] MEDS ORDERED: POTASSIUM CHLORIDE 20 MEQ TAB.PRT.SR PO ONE (11:00)
--- NOTE | 2020-08-11 11:00 | NUR ---
RN NOTE PATIENT IS OFF OF DIPRIVAN DRIP, TOLERATING WELL, PER DR REZA NO DRIP, WILL COT TO MONITOR
[2020-08-11] MEDS: VANCOMYCIN 1 GM in IV D5W 250 ML IV SCH ×2 (12:06→23:39)
[2020-08-11 12:56] LABS: ABG BASE EXCESS 3.3 mmol/L; ABG OXYGEN SATURATION 96.3 % (92.0-98.5); ABG PCO2 35.9 mmHg (35.0-45.0); ABG PO2 83.9 mmHg (75.0-100.0); AaDO2 232.2 mmHg; COHb 1.3 % (0.5-1.5); MetHb 0.3 % (0.0-1.5); O2Hb 94.8 % (94.0-97.0); SITE, ABG Right Radial; VENT MODE, BG simv 4 400 +5 50% ps15
--- NOTE | 2020-08-11 13:10 | NUR ---
RN NOTE COLLECTION SUPERVISOR AT BED SITE, PROCEDURE INITIATED
--- NOTE | 2020-08-11 13:20 | NUR ---
PATIENT'S BP WENT DOWN TO 74/45, WILL INCREASE DOPAMINE DRIP UNTIL DESIRABLE BP
--- NOTE | 2020-08-11 13:28 | NUR ---
DOPAMINE RATE IS 10 MCG, BP WENT UP TO 89/60 HR 116, DIALYSES IN PROCESS CONT TO MONITOR
[2020-08-11] MEDS ORDERED: IV 1/2NS 1000 ML 1,000 ML IV SCH (13:30)
[2020-08-11] MEDS ORDERED: Magnesium 1GM/D5W 100ML PREMIX 100 ML IV SCH (13:30)
[2020-08-11] MEDS: POTASSIUM CL. PREMIX PERIPHER. 50 ML IV SCH ×4 (13:32→17:55)
--- NOTE | 2020-08-11 13:42 | NUR ---
DIALYSES STOP, PATIENT COULDN'T TOLERATE; HR IS 135, BP 91/59
--- NOTE | 2020-08-11 16:44 | NUR ---
patient back on AC mode on vent , will start propofol according to protocol
[2020-08-11 17:35] LABS: CALCIUM, SERUM 6.5 mg/dL (8.5-10.1); CREATININE 0.9 mg/dL (0.6-1.3)
--- NOTE | 2020-08-11 18:00 | NUR ---
BACK ON PREVIOUS SEDATION RATE @30MCG/KG/MIN OF PROPOFOL, TOLERATINGWELL, CALM , EYES OPEN, RR IS 25
--- NOTE | 2020-08-11 18:55 | NUR ---
RN CLOSING NOTES PATIENT REMAINS IN BED, ON VENT SETTINGS, TOLERATING WELL, NO SOB, SPO2 IS 92%,BP IS STABLE ON DOPAMINE DRIP @ 10 MCG, PATIENT IS CLEANED, REPOSITIONED, MEDICATIONS GIVEN, SAFETY MEASURES IN PLACE, WILL ENDORSE TO PM SHIFT FOR RICK
[2020-08-12] VITALS (91 sets, daily range): BP systolic 72–166; BP diastolic 43–101
[2020-08-12] MEDS: IV 1/2NS 1000 ML 1,000 ML IV PRN ×3 (04:10→18:31)
[2020-08-12 04:35] LABS: BASOPHILS # (AUTO) 0.2 /CMM (0.0-0.2); BASOPHILS % (AUTO) 0.4 % (0.0-2.0); HEMATOCRIT 29 % (39-51); HEMOGLOBIN 9.3 g/dL (13.5-17.5); LYMPHOCYTES # (AUTO) 0.6 /CMM (0.8-4.8); LYMPHOCYTES % (AUTO) 1.5 % (20.0-44.0); MEAN CORPUSCULAR HGB CONC 32 g/dl (31.0-36.0); MEAN CORPUSCULAR VOLUME 93 fL (80-96); MONOCYTES # (AUTO) 0.2 /CMM (0.1-1.30); MONOCYTES % (AUTO) 0.6 % (2.0-12.0); NEUTROPHILS # (AUTO) 38.2 /CMM (1.8-8.9); NEUTROPHILS % (AUTO) 97.5 % (43.0-81.0); RED BLOOD CELL COUNT(AUTO) 3.09 MIL/uL (4.5-6.0)
[2020-08-12 04:44] LABS: PLATELET COUNT (AUTO) 47 /CMM (150-450); WHITE BLOOD COUNT (AUTO) 39.2 K/uL (4.3-11.0)
[2020-08-12 04:51] LABS: CALCIUM, SERUM 7.3 mg/dL (8.5-10.1); CREATININE 0.8 mg/dL (0.6-1.3); MAGNESIUM 1.7 mg/dL (1.8-2.4); PHOSPHORUS 2.4 mg/dL (2.5-4.9); POTASSIUM 3.1 mmol/L (3.5-5.1)
[2020-08-12] MEDS: HYDROCORTISONE SOD SUCCINATE 100 MG/2 ML VIAL IV SCH ×3 (04:59→20:00)
[2020-08-12 05:11] LABS: BAND % (MANUAL) 5 % (0.0-5.0); LYMPHOCYTES % (MANUAL) 2 % (16-48); MONOCYTES % (MANUAL) 3 % (0-11.0); NEUTROPHILS % (MANUAL) 90 (42-76)
[2020-08-12] MEDS: BLOOD SUGAR DIAGNOSTIC 1 EACH STRIP IN SCH ×3 (05:15→17:13)
[2020-08-12] MEDS: INSULIN REGULAR, HUMAN 100 UNIT/ML 3 ML VIAL SQ PRN ×3 (05:18→17:14)
[2020-08-12 05:41] LABS: ABG BASE EXCESS 2.9 mmol/L; ABG OXYGEN SATURATION 89.9 % (92.0-98.5); ABG PCO2 40.3 mmHg (35.0-45.0); ABG PH 7.446 (7.350-7.450); ABG PO2 58.8 mmHg (75.0-100.0); AaDO2 272.6 mmHg; COHb 1.4 % (0.5-1.5); MetHb 0.3 % (0.0-1.5); O2Hb 88.4 % (94.0-97.0); SITE, ABG Left Radial; VT, ABG 400 mL
[2020-08-12] MEDS: PROPOFOL 100 ML IV PRN ×3 (06:26→19:18)
--- NOTE | 2020-08-12 07:15 | NUR ---
PAD ASSEMBLER NOTES RECEIVED PATIENT CALM AND COOPERATIVE , ABLE TO FOLLOW SIMPLE COMMANDS, TRACKS , TOLERATING CURRENT VENT SETTINGS WITH SPO2 OF 98% , ETT 7.5/ IN PLACE , ST 115 ON BEDSIDE MONITOR , NGT CLAMPED ASPIRATED NO OUTPUT NOTED , FC DRAINING VIA GRAVITY , JENIFFER PICC LINE DOPAMINE @ 8MCG/KG/MIN , DIPRIVAN @ 30MCG/KG/MIN INFUSING WELL RIGHT FEMORAL HD CATH WITH PIG TAIL ATTACHED TO 1/2NS @ 125ML/HR INFUSING WELL , LEFT UPPER CHEST TUBE DRAINING WITH SEROUS FLUID , ATTACHED TO -20MMHG SUCTION WATER SEAL NO LEAK NOTED , ALL NEEDS ATTENDED WILL CONTINUE TO MONITOR .
[2020-08-12] MEDS: FAMOTIDINE/PF INJ 20 MG/2 ML VIAL IV SCH ×2 (08:58→20:00)
[2020-08-12] MEDS: MEROPENEM 1 G in IV NS 0.9% 100 ML IV SCH ×2 (08:58→20:00)
[2020-08-12] MEDS: DAKINS QUARTER STRENGTH (0.125%) 480 ML BOTTLE TOP SCH (08:58)
--- NOTE | 2020-08-12 09:00 | NUR ---
GEOTHERMAL OPERATIONS ENGINEER NOTES NOTIFIED DR CHAVIRA THAT PT HE IS @ [address] ST , BP OF 73/44 , ON DOPAMINE @ 15MCGH/KG/MIN , PER MD START PT O NORSYNEPHRINE AND KEEP DOPAMINE AT THIS TIME ,
[2020-08-12] MEDS: DOPamine 400 MG in IV D5W 250 ML IV PRN (09:06)
[2020-08-12] MEDS: PHENYLEPHRINE 100 MG in IV NS 0.9% 240 ML IV PRN (09:21)
[2020-08-12] MEDS ORDERED: POTASSIUM CL. PREMIX PERIPHER. 50 ML IV SCH (09:30)
[2020-08-12] MEDS: Magnesium 1GM/D5W 100ML PREMIX 100 ML IV SCH ×2 (09:54→10:50)
[2020-08-12] MEDS ORDERED: POTASSIUM PHOSPHATE MM 15 MMOL in IV NS 0.9% 250 ML IV SCH (10:00)
[2020-08-12] MEDS ORDERED: POTASSIUM CHLORIDE 20 MEQ POWDER PACKET NG ONE (10:00)
--- NOTE | 2020-08-12 10:00 | NUR ---
PRESS MANAGER NOTES SEEN AND EVALUATED BY DR KAHN , DISCUSSED LABS , CHEST XRAY , PT NOTED WITH ADEQUATE URINE OUTPUT , ON DOPAMINE @5MCG/KG/MIN , NEOSYNEPRINE 1MCG/KG/MIN , AFEBRILE , SEDATED ON VENT , PER MD HE DOESNT NEED HD AT THIS TIME , START PT ON H2O FLUSHED 200ML Q6 , CONTINUE IVF ,
[2020-08-12] MEDS: VANCOMYCIN 1 GM in IV D5W 250 ML IV SCH (12:51)
--- NOTE | 2020-08-12 15:29 | NUR ---
MOBILE SALES CONSULTANT NOTES SEEN AND EVALUATED BY DR JOSEPH , DISCUSSED LABS , WBC OF 39.2 , PLATELETS OF 47 WITH NO ACTIVE BLEEDING NOTED, PT ON DOPAMINE @5MCG/KG/MIN , NEOSYNEPRINE @1MCG/KG/MIN , DIPRIVAN @ 40MCG/KG/MIN , TOLERATING VENT SETTINGS , CURRENTLY IN AC MODE SETTINGS ORDERED WITH NO DISTRESS , NOTIFIED MD THAT PER DR KAHN PT DOESNT NEED HD AT THIS TIME , VERIFIED WITH WE CAN CHANGE DIET ORDER PT IS NPO AND DR KAHN ORDERED H2O FLUSHES , PER MD OK TO CHANGE DIET TO NPO EXCEPT MEDS , AND SHE WILL CALL DR NAVARRO FOR CONSULT .
--- NOTE | 2020-08-12 19:27 | NUR ---
WINCH DRIVER NOTES PATIENT STABLE AT THIS TIME , SEDATED, TOLERATING CURRENT VENT SETTINGS WITH SPO2 OF 98% , ETT 7.[address] , SR85 ON BEDSIDE MONITOR , NGT CLAMPED ASPIRATED NO OUTPUT NOTED , FC DRAINING VIA GRAVITY , JENIFFER PICC LINE DOPAMINE @ 5MCG/KG/MIN , DIPRIVAN @ 40MCG/KG/MIN , NEOSYNEPRINE @1MCG/KG/MIN INFUSING WELL RIGHT FEMORAL HD CATH WITH PIG TAIL ATTACHED TO NS @ TKO INFUSING WELL , LEFT UPPER CHEST TUBE DRAINING WITH SEROUS FLUID , ATTACHED TO -20MMHG SUCTION WATER SEAL NO LEAK NOTED OUTPUT IS 200ML , ALL NEEDS ATTENDED REPORT GIVEN TO PARMJIT FOR CONTINUITY OF CARE
[2020-08-12 23:59] LABS: D-DIMER 2.7 mg/L(FEU (0.17-0.50)
[2020-08-13] VITALS (86 sets, daily range): BP systolic 72–186; BP diastolic 37–86
[2020-08-13] MEDS: BLOOD SUGAR DIAGNOSTIC 1 EACH STRIP IN SCH ×5 (00:10→23:02)
[2020-08-13] MEDS: IV 1/2NS 1000 ML 1,000 ML IV PRN ×2 (00:12→10:40)
[2020-08-13] MEDS: DOPamine 400 MG in IV D5W 250 ML IV PRN ×2 (00:13→20:05)
[2020-08-13] MEDS: PROPOFOL 100 ML IV PRN ×4 (00:13→20:21)
[2020-08-13] MEDS: INSULIN REGULAR, HUMAN 100 UNIT/ML 3 ML VIAL SQ PRN ×4 (00:34→23:02)
[2020-08-13] MEDS: PHENYLEPHRINE 100 MG in IV NS 0.9% 240 ML IV PRN ×2 (04:17→20:30)
[2020-08-13] MEDS: VANCOMYCIN 1 GM in IV D5W 250 ML IV SCH ×2 (05:00→23:31)
[2020-08-13] MEDS: HYDROCORTISONE SOD SUCCINATE 100 MG/2 ML VIAL IV SCH ×3 (05:00→17:21)
[2020-08-13 05:07] LABS: BASOPHILS # (AUTO) 0.1 /CMM (0.0-0.2); BASOPHILS % (AUTO) 0.1 % (0.0-2.0); HEMATOCRIT 25 % (39-51); HEMOGLOBIN 7.9 g/dL (13.5-17.5); LYMPHOCYTES # (AUTO) 0.4 /CMM (0.8-4.8); MEAN CORPUSCULAR HGB CONC 32 g/dl (31.0-36.0); MEAN CORPUSCULAR VOLUME 94 fL (80-96); MONOCYTES # (AUTO) 0.4 /CMM (0.1-1.30); MONOCYTES % (AUTO) 0.9 % (2.0-12.0); NEUTROPHILS # (AUTO) 40.5 /CMM (1.8-8.9); RED BLOOD CELL COUNT(AUTO) 2.64 MIL/uL (4.5-6.0)
[2020-08-13 05:19] LABS: BILIRUBIN,DIRECT 0.5 mg/dL (0.0-0.2); BILIRUBIN,TOTAL 0.8 mg/dL (0.2-1.0); CALCIUM, SERUM 7.5 mg/dL (8.5-10.1); CREATININE 0.8 mg/dL (0.6-1.3); PHOSPHORUS 3.5 mg/dL (2.5-4.9); POTASSIUM 4.1 mmol/L (3.5-5.1); TOTAL PROTEIN, SERUM 4.7 g/dL (6.4-8.2)
[2020-08-13 05:21] LABS: ALBUMIN 1.2 g/dL (3.4-5.0)
[2020-08-13 05:40] LABS: PLATELET COUNT (AUTO) 49 /CMM (150-450); WHITE BLOOD COUNT (AUTO) 41.4 K/uL (4.3-11.0)
[2020-08-13 05:48] LABS: D-DIMER 3.05 mg/L(FEU (0.17-0.50)
[2020-08-13 06:09] LABS: ABG BASE EXCESS 2.3 mmol/L; ABG OXYGEN SATURATION 99.1 % (92.0-98.5); ABG PCO2 41.9 mmHg (35.0-45.0); ABG PH 7.426 (7.350-7.450); ABG PO2 148.1 mmHg (75.0-100.0); AaDO2 233.6 mmHg; COHb 1.4 % (0.5-1.5); MetHb 0.3 % (0.0-1.5); O2Hb 97.4 % (94.0-97.0); SITE, ABG Left Radial; VENT MODE, BG AC 24 400 60% +5
[2020-08-13 06:35] LABS: LYMPHOCYTES % (MANUAL) 2 % (16-48); MONOCYTES % (MANUAL) 1 % (0-11.0); NEUTROPHILS % (MANUAL) 97 (42-76)
--- NOTE | 2020-08-13 08:00 | NUR ---
RN NOTES PATIENT ON VENT SETTINGS, TOLERATING WELL, NO SOB, SPO2 IS 92%,BP IS STABLE ON DOPAMINE DRIP @ 40 MCG, NORSYNEPHRINE 0.1, DOPAMINE 5, AND 1/2 NS AT125 MG/DL, NG TUBE INTACT, AND CLAMPED, CHEST TUBE INTACT, DRAINING FREELY, VELEZ DRAINING LIGHT YELLOW OUTPUT. REPOSITIONED, MEDICATIONS GIVEN, SAFETY MEASURES IN PLACE,. WILL MONITORING.
[2020-08-13] MEDS: MEROPENEM 1 G in IV NS 0.9% 100 ML IV SCH ×2 (08:21→20:11)
[2020-08-13] MEDS: FAMOTIDINE/PF INJ 20 MG/2 ML VIAL IV SCH ×2 (08:21→20:12)
[2020-08-13] MEDS: DAKINS QUARTER STRENGTH (0.125%) 480 ML BOTTLE TOP SCH (08:22)
--- NOTE | 2020-08-13 09:28 | NUR ---
RN NOTES PER HAND TOOL FILER Dr KAHN DECREASE IV INFUSION TO 75 ML/HR, AND NO MORE HD, CREATININE 0.8 NORMAL. ORDER TAKEN AND CARRIED OUT.
[2020-08-13] MEDS: IV NS 0.9% 250 ML IV PRN (10:40)
--- NOTE | 2020-08-13 18:30 | NUR ---
RN NOTES PATIENT PM CARE DONE, ON VENT SETTINGS, TOLERATING WELL, NO SOB, SPO2 IS 96%, DOPAMINE DRIP @ 5 MCG, NORSYNEPHRINE 1 MCG, DIPRIVAN 30 MCG, ASSIST TURN REPOSTION Q 2HR, PATIENT IS CLEANED, REPOSITIONED, MEDICATIONS GIVEN, SAFETY MEASURES IN PLACE, WILL ENDORSE TO PM SHIFT FOR RICK
[2020-08-13] MEDS ORDERED: diphenhydrAMINE HCL 50 MG/ML VIAL IV ONE (21:30)
[2020-08-13] MEDS ORDERED: ACETAMINOPHEN 325 MG TABLET PO ONE (21:30)
[2020-08-14] VITALS (93 sets, daily range): BP systolic 74–153; BP diastolic 44–76
[2020-08-14] MEDS: IV 1/2NS 1000 ML 1,000 ML IV PRN ×2 (02:13→14:14)
[2020-08-14 04:46] LABS: BASOPHILS # (AUTO) 0.1 /CMM (0.0-0.2); BASOPHILS % (AUTO) 0.2 % (0.0-2.0); HEMATOCRIT 31 % (39-51); HEMOGLOBIN 10.1 g/dL (13.5-17.5); LYMPHOCYTES # (AUTO) 0.9 /CMM (0.8-4.8); LYMPHOCYTES % (AUTO) 2.4 % (20.0-44.0); MEAN CORPUSCULAR HGB CONC 32 g/dl (31.0-36.0); MEAN CORPUSCULAR VOLUME 93 fL (80-96); MONOCYTES # (AUTO) 0.7 /CMM (0.1-1.30); MONOCYTES % (AUTO) 1.9 % (2.0-12.0); NEUTROPHILS # (AUTO) 34.4 /CMM (1.8-8.9); NEUTROPHILS % (AUTO) 95.5 % (43.0-81.0); PLATELET COUNT (AUTO) 74 /CMM (150-450); RED BLOOD CELL COUNT(AUTO) 3.33 MIL/uL (4.5-6.0)
[2020-08-14 05:07] LABS: CREATININE 0.6 mg/dL (0.6-1.3); MAGNESIUM 1.9 mg/dL (1.8-2.4); PHOSPHORUS 2.7 mg/dL (2.5-4.9); POTASSIUM 3.1 mmol/L (3.5-5.1)
[2020-08-14] MEDS: PROPOFOL 100 ML IV PRN ×3 (05:24→22:45)
[2020-08-14] MEDS: INSULIN REGULAR, HUMAN 100 UNIT/ML 3 ML VIAL SQ PRN ×2 (05:32→18:27)
[2020-08-14 05:42] LABS: D-DIMER 3.95 mg/L(FEU (0.17-0.50)
[2020-08-14] MEDS: BLOOD SUGAR DIAGNOSTIC 1 EACH STRIP IN SCH ×4 (06:00→23:44)
[2020-08-14 06:30] LABS: LYMPHOCYTES % (MANUAL) 2 % (16-48); MONOCYTES % (MANUAL) 2 % (0-11.0); NEUTROPHILS % (MANUAL) 96 (42-76)
[2020-08-14] MEDS: MEROPENEM 1 G in IV NS 0.9% 100 ML IV SCH ×2 (08:34→20:03)
[2020-08-14] MEDS ORDERED: POTASSIUM CHLORIDE 20 MEQ POWDER PACKET GT SCH (09:30)
[2020-08-14] MEDS: FAMOTIDINE/PF INJ 20 MG/2 ML VIAL IV SCH ×2 (09:32→20:05)
[2020-08-14] MEDS: HYDROCORTISONE SOD SUCCINATE 100 MG/2 ML VIAL IV SCH ×2 (09:32→17:57)
[2020-08-14] MEDS: DAKINS QUARTER STRENGTH (0.125%) 480 ML BOTTLE TOP SCH (09:33)
[2020-08-14] MEDS: DOPamine 400 MG in IV D5W 250 ML IV PRN (09:35)
[2020-08-14] MEDS: VANCOMYCIN 1 GM in IV D5W 250 ML IV SCH (17:57)
--- NOTE | 2020-08-14 19:20 | NUR ---
RN OPENING NOTES RECEIVED PT IN BED, SEDATED INTUBATED 7.5/23CM AT LIP. VENT SETTINGS AC 24 TV 420 FIO2 40% AND PEEP OF 8. TOLERATING SETTINGS WELL. SATURATION IS AT 98% NO SOB OR RESP DISTRESS NOTED, BREATHING EVEN AND UNLABORED AT THIS TIME. PT IS ON TELE MONITORING DISPLAYING NSR HEART RATE 75. IV JENIFFER PICC AND RIGHT FEM PIG TAIL, PATENT RUNNING DOPAMINE AT 5MCG/KG/MIN AND PROPOFOL AT 30 MCG/KG/MIN. WILL TITRATE ACCORDING TO PROTOCOL. NGT CLAMPED, AUSCULTATED TO CONFIRM PLACEMENT, FLUSHED. PATENT. VELEZ CATH IN PLACE, DRAINING URINE VIA GRAVITY. SAFETY MEASURE IN PLACE. HOB ELEVATED. SIDE RAILS UP X2. BED LOCKED IN LOWEST POSITION. WILL CONTINUE TO MONITOR. Addendum: 08/15/20 at 0901 by BRAXTON LI RN IVF 0.45% NS AT 75 CC/HR
--- NOTE | 2020-08-14 20:20 | NUR ---
RT NOTE PT RECEIVED INTUBATED WITH 7.5 ET TUBE @ 23 CM ON MID LIP LINE. MOVED ET TUBE TO RIGHT. PT AWAKE. CUFF INFLATED. AMBU BAG @ HOB. SX DONE, SMALL THICK SECRETIONS NOTED. ALARMS ON AND AUDIBLE. NO DISTRESS NOTED AT THIS TIME. WILL CONTINUE TO MONITOR CLOSELY. VENT PLUGGED TO RED OUTLET. Addendum: 08/14/20 at 2020 by FAB LOPEZ RT Amended: Links added.
[2020-08-15] VITALS (58 sets, daily range): BP systolic 91–175; BP diastolic 46–84
[2020-08-15] MEDS: INSULIN REGULAR, HUMAN 100 UNIT/ML 3 ML VIAL SQ PRN ×4 (00:03→17:42)
[2020-08-15] MEDS: IV 1/2NS 1000 ML 1,000 ML IV PRN ×2 (02:12→14:59)
[2020-08-15] MEDS: DOPamine 400 MG in IV D5W 250 ML IV PRN (04:10)
[2020-08-15 04:41] LABS: BASOPHILS # (AUTO) 0.1 /CMM (0.0-0.2); BASOPHILS % (AUTO) 0.6 % (0.0-2.0); EOSINOPHILS % (AUTO) 0.1 % (0.0-6.0); HEMATOCRIT 25 % (39-51); HEMOGLOBIN 8.2 g/dL (13.5-17.5); LYMPHOCYTES # (AUTO) 0.6 /CMM (0.8-4.8); LYMPHOCYTES % (AUTO) 3.8 % (20.0-44.0); MEAN CORPUSCULAR HGB CONC 33 g/dl (31.0-36.0); MEAN CORPUSCULAR VOLUME 94 fL (80-96); MONOCYTES # (AUTO) 0.4 /CMM (0.1-1.30); MONOCYTES % (AUTO) 2.7 % (2.0-12.0); NEUTROPHILS % (AUTO) 92.8 % (43.0-81.0); PLATELET COUNT (AUTO) 67 /CMM (150-450); RED BLOOD CELL COUNT(AUTO) 2.69 MIL/uL (4.5-6.0); WHITE BLOOD COUNT (AUTO) 15.1 K/uL (4.3-11.0)
[2020-08-15 04:56] LABS: CALCIUM, SERUM 7.3 mg/dL (8.5-10.1); CREATININE 0.6 mg/dL (0.6-1.3); MAGNESIUM 1.5 mg/dL (1.8-2.4); PHOSPHORUS 2.2 mg/dL (2.5-4.9); POTASSIUM 3.5 mmol/L (3.5-5.1)
[2020-08-15 05:02] LABS: D-DIMER 2.71 mg/L(FEU (0.17-0.50)
[2020-08-15] MEDS: PROPOFOL 100 ML IV PRN (05:15)
[2020-08-15] MEDS: BLOOD SUGAR DIAGNOSTIC 1 EACH STRIP IN SCH ×3 (05:16→17:45)
[2020-08-15 05:18] LABS: LYMPHOCYTES % (MANUAL) 6 % (16-48); MONOCYTES % (MANUAL) 3 % (0-11.0); NEUTROPHILS % (MANUAL) 91 (42-76)
[2020-08-15 07:07] LABS: IMMUNOGLOBULIN A, SERUM 298 mg/dL (90-386); IMMUNOGLOBULIN G, SERUM 1360 mg/dL (603-1613); IMMUNOGLOBULIN M, SERUM 146 mg/dL (20-172)
--- NOTE | 2020-08-15 07:30 | NUR ---
RN CLOSING NOTE PT IS IN BED, EYES OPEN SPONTANEOUSLY. STILL ON SAME VENT SETTINGS NO CHANGE, PT TOLERATING SETTINGS O2 SATURATION IS AT 98%. NO S/S OF RESP DISTRESS OR SOB NOTED. BREATHING IS EVEN AND UNLABORED. ON TELE MONITORING NSR HEART RATE CURRENTLY IN THE 70S. PT STILL ON DRIPS DOPAMINE 5MCG/KG/MIN, PROPOFOL 30MCG/KG/MIN, IVF AT 75CC. PT WOUND TX DONE, TURN AND REPOSITIONED Q2H. OFF LOAD. NGT CLAMPED. CHEST TUBE LESS THAN 30CC OUT. SAFETY MEASURE IN PLACE. HOB ELEVATED. SIDE RAILS UP X2. BED LOCKED IN LOWEST POSITION. ENDORSED TO AM NURSE FOR CONTINUATION OF CARE.
--- NOTE | 2020-08-15 07:53 | NUR ---
COMMUNITY RELATIONS LIAISON NOTE PATIENT IN BED WITH ETT TUBE TO VENT SETTING ORDERED ON TELE MONITOR SR HR 71 , BOTH EYES OPEN RT NG TUBE CLUMPED WITH VELEZ CATH TO GRAVITY WITH YELLOW COLOR URINE, ON NPO STATUS, RT UPPER ARM PICC LINE IN PLACE ON DOPAMINE DRIP AND DIPRIVAN DRIP ORDERED ON IVF ORDERED, BED IN LOWEST AND LOCKED POSITION , WILL MONITOR
[2020-08-15] MEDS: MEROPENEM 1 G in IV NS 0.9% 100 ML IV SCH ×2 (08:06→20:57)
[2020-08-15] MEDS: HYDROCORTISONE SOD SUCCINATE 100 MG/2 ML VIAL IV SCH ×2 (08:12→17:27)
[2020-08-15] MEDS: FAMOTIDINE/PF INJ 20 MG/2 ML VIAL IV SCH ×2 (08:12→21:32)
[2020-08-15] MEDS: DAKINS QUARTER STRENGTH (0.125%) 480 ML BOTTLE TOP SCH (08:13)
[2020-08-15] MEDS: Magnesium 1GM/D5W 100ML PREMIX 100 ML IV SCH ×2 (09:13→10:17)
[2020-08-15] MEDS: POTASSIUM PHOSPHATE MM 7.5 MMOL in IV NS 0.9% 100 ML IV SCH ×2 (09:20→11:46)
--- NOTE | 2020-08-15 09:20 | NUR ---
RIB KNITTER NOTE PER DR REZA CHANGED TO SIMV MODE OF VENT
[2020-08-15 10:24] LABS: ABG BASE EXCESS 5.8 mmol/L; ABG OXYGEN SATURATION 92.4 % (92.0-98.5); ABG PCO2 34.6 mmHg (35.0-45.0); ABG PH 7.535 (7.350-7.450); ABG PO2 59.4 mmHg (75.0-100.0); MetHb 0.3 % (0.0-1.5); O2Hb 91.2 % (94.0-97.0); PEEP,BG 5 cm H2O; SITE, ABG Left Femoral; VENT MODE, BG SIMV 4 / PS 15; VT, ABG 400 mL
--- NOTE | 2020-08-15 10:30 | NUR ---
curriculum and assessment coordinator note ebony segovia buffer copper road maker notified that hg today 8.2 no active bleeding noted ,will cont to Monitor
--- NOTE | 2020-08-15 10:58 | NUR ---
BROKER IN CHARGE NOTE PER DR LIBIA KYLE TO EXTUBATE
--- NOTE | 2020-08-15 11:30 | NUR ---
agricultural equipment sales engineer note extubated placed on 6l nc ,saturation 95%
--- NOTE | 2020-08-15 11:30 | NUR ---
RT PER DR REZA PATIENT WAS EXTUBATED AND PLACED ON 6L N/C RIGOBERTO WELL Addendum: 08/15/20 at 1146 by SULAIMAN MISTRY RT Amended: Links added.
[2020-08-15] MEDS: VANCOMYCIN 1 GM in IV D5W 250 ML IV SCH (11:53)
--- NOTE | 2020-08-15 14:30 | NUR ---
HEATER MECHANIC NOTE TURN, REPOSITION DONE, KEEP CLEAN DRY, ALL NEEDS ATTAINED, WITH CHEST TUBE TO SUCTION ORDERED ON IVF ORDERED ,SATURATION ON 6L OF O2 IS 94% ,WILL MONITOR
[2020-08-15 16:07] LABS: *SPE A/G RATIO 0.5 (0.7-1.7); *SPE ALBUMIN 1.7 g/dL (2.9-4.4); *SPE ALPHA-1-GLOBULIN 0.4 g/dL (0.0-0.4); *SPE ALPHA-2-GLOBULIN 0.8 g/dL (0.4-1.0); *SPE BETA GLOBULIN 0.8 g/dL (0.7-1.3); *SPE GLOBULIN, TOTAL 3.4 g/dL (2.2-3.9); *SPE M-SPIKE Not Observed g/dL (Not Observed); *SPEGAMMA GLOBULIN 1.5 g/dL (0.4-1.8)
--- NOTE | 2020-08-15 16:40 | NUR ---
icu over flow transferred to room 311 icu over flow report given to sofia segovia went to room 311 by acls protocol by bed with stable condition
--- NOTE | 2020-08-15 16:56 | NUR ---
ICU/soda dialyzer Patient received as ICU overflow from ICU room 259, endorsed by Sarah. Appears comfortable upon transfer, no signs of any respiratory distress, patient was previously extubated at 1100 this morning. Oxygen via nasal cannula at 6l, with saturation of 99%. Vital signs documented as per protocol BP 94/67 HR 78 Temperature 98.5 IV fluids infusing at 100ml/hr via right upper arm picc line, no signs of infiltration seen. Chest tube to wall suction (20), all chambers of canister marked upon arrival. Chest x-ray from this morning reported that left chest tube remains in place without visible pneumothorax. Small left effusion and left base atelectasis. Seen by Dr Lindquist - to continue with supplemental oxygen to maintain oxygen saturation greater than 90%. Anticipate discontinuing chest tube in next 1-2 days. Safety measures in place, bed in low setting, side rails X3 in upright position, brakes locked. Call light within reach, will continue to monitor and ensure safety.
--- NOTE | 2020-08-15 18:33 | NUR ---
ICU/RN End note Patient remains in stable condition, all needs attended, will endorse to special education professor.
[2020-08-15 19:11] LABS: BASOPHILS # (AUTO) 0.1 /CMM (0.0-0.2); BASOPHILS % (AUTO) 0.3 % (0.0-2.0); HEMATOCRIT 27 % (39-51); HEMOGLOBIN 8.7 g/dL (13.5-17.5); LYMPHOCYTES # (AUTO) 0.3 /CMM (0.8-4.8); LYMPHOCYTES % (AUTO) 2.1 % (20.0-44.0); MEAN CORPUSCULAR HGB CONC 32 g/dl (31.0-36.0); MEAN CORPUSCULAR VOLUME 94 fL (80-96); MONOCYTES # (AUTO) 0.5 /CMM (0.1-1.30); MONOCYTES % (AUTO) 2.9 % (2.0-12.0); NEUTROPHILS # (AUTO) 15.8 /CMM (1.8-8.9); NEUTROPHILS % (AUTO) 94.7 % (43.0-81.0); PLATELET COUNT (AUTO) 61 /CMM (150-450); RED BLOOD CELL COUNT(AUTO) 2.91 MIL/uL (4.5-6.0); WHITE BLOOD COUNT (AUTO) 16.7 K/uL (4.3-11.0)
[2020-08-15 19:34] LABS: LYMPHOCYTES % (MANUAL) 1 % (16-48); MONOCYTES % (MANUAL) 3 % (0-11.0); NEUTROPHILS % (MANUAL) 96 (42-76)
--- NOTE | 2020-08-15 19:45 | NUR ---
TOY STUFFER NOTE: PATIENT RESTING IN BED, NO ACUTE DISTRESS NOTED. BREATHING EVEN AND UNLABORED, NO SOB NOTED. OXYGEN AT 6 LPM VIA NC IN PLACE. NG TUBE TO RIGHT NARE IN PLACE, CLAMPED AT THIS TIME. HOB ELEVATED. VELEZ CATHETER IN PLACE, EMPTY AT THIS TIME. PICC LINE TO JENIFFER IN PLACE, INFUSING 1/2NS AT 100ML/HR. CHEST TUBE IN PLACE, CLAMP AT BEDSIDE. BED LOCKED AND IN LOWEST POSITION, CALL LIGHT IN REACH. WILL CONTINUE TO MONITOR.
[2020-08-16] VITALS (18 sets, daily range): BP systolic 114–170; BP diastolic 63–86
[2020-08-16] MEDS: BLOOD SUGAR DIAGNOSTIC 1 EACH STRIP IN SCH ×4 (00:11→17:38)
[2020-08-16] MEDS: INSULIN REGULAR, HUMAN 100 UNIT/ML 3 ML VIAL SQ PRN ×4 (00:33→17:39)
--- NOTE | 2020-08-16 00:45 | NUR ---
JOURNEYMAN PRESSMAN NOTE: PATIENT BLOOD SUGAR LEVEL 187MG/DL, PATIENT TO RECEIVE 3 UNITS OF INSULIN PER SLIDING SCALE. NO S/S OF HYPER/HYPOGLYCEMIA NOTED. WILL CONTINUE TO MONITOR.
[2020-08-16] MEDS: IV 1/2NS 1000 ML 1,000 ML IV PRN ×2 (03:47→20:21)
[2020-08-16 06:30] LABS: BASOPHILS % (AUTO) 0.1 % (0.0-2.0); HEMATOCRIT 28 % (39-51); HEMOGLOBIN 8.9 g/dL (13.5-17.5); LYMPHOCYTES # (AUTO) 0.3 /CMM (0.8-4.8); LYMPHOCYTES % (AUTO) 2.2 % (20.0-44.0); MEAN CORPUSCULAR HGB CONC 32 g/dl (31.0-36.0); MEAN CORPUSCULAR VOLUME 95 fL (80-96); MONOCYTES # (AUTO) 0.3 /CMM (0.1-1.30); MONOCYTES % (AUTO) 2.2 % (2.0-12.0); NEUTROPHILS # (AUTO) 14.6 /CMM (1.8-8.9); NEUTROPHILS % (AUTO) 95.5 % (43.0-81.0); PLATELET COUNT (AUTO) 73 /CMM (150-450); RED BLOOD CELL COUNT(AUTO) 2.94 MIL/uL (4.5-6.0); WHITE BLOOD COUNT (AUTO) 15.3 K/uL (4.3-11.0)
[2020-08-16 06:35] LABS: ABG BASE EXCESS -1.8 mmol/L; ABG OXYGEN SATURATION 95.9 % (92.0-98.5); ABG PCO2 40.8 mmHg (35.0-45.0); ABG PH 7.374 (7.350-7.450); ABG PO2 90.7 mmHg (75.0-100.0); AaDO2 205.4 mmHg; COHb 0.7 % (0.5-1.5); MetHb 0.3 % (0.0-1.5); O2Hb 94.9 % (94.0-97.0); SITE, ABG Left Radial; VENT MODE, BG NASAL CANNULA
--- NOTE | 2020-08-16 06:45 | NUR ---
BUS MATRON NOTE: PATIENT RESTING IN BED, NO ACUTE DISTRESS NOTED. BREATHING EVEN AND UNLABORED, NO SOB NOTED. OXYGEN AT 6 LPM VIA NC IN PL[address]. NG TUBE TO RIGHT NARE IN PLACE, CLAMPED AT THIS TIME. HOB ELEVATED. VELEZ CATHETER IN PLACE. PICC LINE TO JENIFFER IN PLACE, INFUSING 1/2NS AT 75ML/HR. CHEST TUBE IN PLACE, CLAMP AT BEDSIDE. PATIENT BLOOD SUGAR LEVEL 168MG/DL, PATIENT TO RECEIVE 3 UNITS OF INSULIN PER SLIDING SCALE. NO S/S OF HYPER/HYPOGLYCEMIA NOTED. BED LOCKED AND IN LOWEST POSITION, CALL LIGHT IN REACH. WILL ENDORSE TO DAY NURSE TO CONTINUE WITH PLAN OF CARE.
[2020-08-16 07:07] LABS: CALCIUM, SERUM 7.5 mg/dL (8.5-10.1); CREATININE 0.5 mg/dL (0.6-1.3); MAGNESIUM 2.7 mg/dL (1.8-2.4); PHOSPHORUS 3.2 mg/dL (2.5-4.9); POTASSIUM 3.4 mmol/L (3.5-5.1)
--- NOTE | 2020-08-16 07:30 | NUR ---
PT RECEIVED RESTING COMFORTABLY IN BED. NO S/S OR C/O PAIN OR DISTRESS NOTED. SIDE RAILS UP X2, CALL LIGHT LEFT WITHIN REACH WILL CONTINUE PLAN OF CARE.
[2020-08-16] MEDS: MEROPENEM 1 G in IV NS 0.9% 100 ML IV SCH ×2 (08:17→20:21)
[2020-08-16] MEDS: FAMOTIDINE/PF INJ 20 MG/2 ML VIAL IV SCH ×2 (08:17→20:44)
[2020-08-16] MEDS: HYDROCORTISONE SOD SUCCINATE 100 MG/2 ML VIAL IV SCH ×2 (08:18→16:34)
[2020-08-16] MEDS: DAKINS QUARTER STRENGTH (0.125%) 480 ML BOTTLE TOP SCH (08:26)
--- NOTE | 2020-08-16 09:35 | NUR ---
DR REZA AT BEDSIDE ORDERS RECEIVED TO CLAMP CHEST TUBE FOR 2 HOURS THEN TAKE CHEST XRAY. IF PNEUMOTHORAX PRESENT, UNCLAMP CHEST TUBE.
[2020-08-16] MEDS: POTASSIUM CHLORIDE 20 MEQ TAB.PRT.SR PO SCH ×2 (10:22→13:00)
[2020-08-16] MEDS ORDERED: VANCOMYCIN 1 GM in IV D5W 250 ML IV SCH (12:00)
--- NOTE | 2020-08-16 20:31 | NUR ---
CHANGE OF SHIFT REPORT OT RESTING COMFORTABLY IN BED. NO S/S OR C/O PAIN OR DISTRESS NOTED. SIDE RAILS UP X2, CALL LIGHT LEFT WITHIN REACH. PT KEPT CLEAN DRY AND COMFORTABLE. NO SIGNIFICANT CHANGES SINCE PREVIOUS SHIFT. REPORT GIVEN TO FREDA VELASQUEZ.
[2020-08-17] VITALS (20 sets, daily range): BP systolic 55–138; BP diastolic 33–110
[2020-08-17] MEDS: BLOOD SUGAR DIAGNOSTIC 1 EACH STRIP IN SCH ×4 (00:55→18:16)
--- NOTE | 2020-08-17 01:15 | NUR ---
RN NOTES PT. HAD SUDDEN CHANGE OF LEVEL OF CONSCIOUSNESS, CODE BLUE WAS INITIATED
--- NOTE | 2020-08-17 01:28 | NUR ---
RN NOTES CODE BLUE FINISHED AT THIS TIME, TON CARDONA-TADEO WILL CALL THE FAMILY
--- NOTE | 2020-08-17 01:35 | NUR ---
RT NOTE CODE BLUE CALLED BY RN. COMPRESSIONS STARTED WITH AT PATIENT BEDSIDE. PATIENT INTUBATED BY WITH ETT 7.0 25CM SECURED @ THE LIP. COLOR CHANGE FROM CO2 DETECTOR. BILATERAL BREATH SOUNDS AND EQUAL CHEST RISE NOTED. PATIENT PLACED ON VENT SETTINGS OF AC 14 VT550 100% PEEP+5. NO SIGNS OF RESPIRATORY DISTRESS AT THIS TIME. ALARMS ARE SET AND AUDIBLE. MECHANICAL VENT PLUGGED INTO RED OUTLET. AMBU BAG AT PATIENT BEDSIDE. WAITING FOR FURTHER ORDERS. WILL CONTINUE TO MONITOR. Addendum: 08/17/20 at 0221 by KARINA SHIELDS RT Amended: Links added.
[2020-08-17] MEDS ORDERED: IV NS 0.9% 1,000 ML IV ONE ×2 (02:00)
[2020-08-17 02:17] LABS: BASOPHILS # (AUTO) 0.1 /CMM (0.0-0.2); BASOPHILS % (AUTO) 0.8 % (0.0-2.0); HEMATOCRIT 27 % (39-51); HEMOGLOBIN 8.2 g/dL (13.5-17.5); LYMPHOCYTES # (AUTO) 0.5 /CMM (0.8-4.8); LYMPHOCYTES % (AUTO) 2.7 % (20.0-44.0); MEAN CORPUSCULAR HGB CONC 30 g/dl (31.0-36.0); MEAN CORPUSCULAR VOLUME 99 fL (80-96); MONOCYTES # (AUTO) 0.4 /CMM (0.1-1.30); MONOCYTES % (AUTO) 2.6 % (2.0-12.0); NEUTROPHILS % (AUTO) 93.9 % (43.0-81.0); PLATELET COUNT (AUTO) 103 /CMM (150-450); RED BLOOD CELL COUNT(AUTO) 2.73 MIL/uL (4.5-6.0)
--- NOTE | 2020-08-17 02:20 | NUR ---
RN NOTES INFORMED TON CARDONA REGARDING THE RESULT OF PT'S CXTAY- TON ORDERED TO PUT BACK CHEST TUBE ON LOW SUCTION, ORDER NOTED AND CARRIED OUT
[2020-08-17 02:32] LABS: CALCIUM, SERUM 7.3 mg/dL (8.5-10.1); CARBON DIOXIDE 25 mmol/L (21-32); CHLORIDE 117 mmol/L (98-107); CREATININE 0.9 mg/dL (0.6-1.3); GLUCOSE 297 mg/dL (74-106); POTASSIUM 4.5 mmol/L (3.5-5.1); SODIUM SERUM 149 mmol/L (136-145); UREA NITROGEN, BLOOD 24 mg/dL (7-18)
[2020-08-17 02:39] LABS: ALANINE AMINOTRANSFERASE 45 U/L (12-78); ALKALINE PHOSPHATASE 105 U/L (46-116); ASPARTATE AMINOTRANSFERASE 35 U/L (15-37); BILIRUBIN,TOTAL 0.4 mg/dL (0.2-1.0); MAGNESIUM 1.9 mg/dL (1.8-2.4); PHOSPHORUS 6.8 mg/dL (2.5-4.9); TOTAL PROTEIN, SERUM 4.2 g/dL (6.4-8.2)
[2020-08-17] MEDS ORDERED: PROPOFOL 100 ML ONE (02:43)
[2020-08-17 02:45] LABS: ALBUMIN 1.1 g/dL (3.4-5.0)
[2020-08-17 03:14] LABS: ABG OXYGEN SATURATION 93.6 % (92.0-98.5); ABG PCO2 35.8 mmHg (35.0-45.0); ABG PH 7.327 (7.350-7.450); ABG PO2 75.3 mmHg (75.0-100.0); AaDO2 601.9 mmHg; COHb 1.4 % (0.5-1.5); MetHb 0.3 % (0.0-1.5); PEEP,BG 5 cm H2O; SITE, ABG Left Brachial; VT, ABG 550 mL
[2020-08-17] MEDS: NOREPINEPHRINE 8 MG in IV NS 0.9% 242 ML IV PRN ×2 (03:43→08:33)
[2020-08-17] MEDS: PROPOFOL 100 ML IV PRN ×3 (04:02→21:32)
[2020-08-17] MEDS: INSULIN REGULAR, HUMAN 100 UNIT/ML 3 ML VIAL SQ PRN ×3 (06:01→18:17)
[2020-08-17 08:01] LABS: BILIRUBIN,DIRECT 0.4 mg/dL (0.0-0.2)
[2020-08-17 08:33] LABS: D-DIMER 17.78 mg/L(FEU (0.17-0.50)
--- NOTE | 2020-08-17 08:35 | NUR ---
RN NOTE Patient's BP at 0745 was 93/74 HR 96 running levofed at 0.2mcg/kg/min. Pharmacy brought new bag of LEVOFED and bag was changed, continued at the same dose of 0.2mcg/kg/min. Current BP is 55/38 HR 64.
--- NOTE | 2020-08-17 08:51 | NUR ---
RN NOTE Patient is awake, agitated, biting ET tube. Per pharmacy ok to titrate to 10mcg/kg/min.
--- NOTE | 2020-08-17 09:13 | NUR ---
RN NOTE Per Dr. Lindquist to give IVF 500NS BOLUS to treat hypotension. Orders repeated back and carried out.
[2020-08-17] MEDS: MEROPENEM 1 G in IV NS 0.9% 100 ML IV SCH ×2 (09:23→21:30)
[2020-08-17] MEDS: FAMOTIDINE/PF INJ 20 MG/2 ML VIAL IV SCH ×2 (09:26→21:33)
[2020-08-17] MEDS: DAKINS QUARTER STRENGTH (0.125%) 480 ML BOTTLE TOP SCH (09:26)
[2020-08-17] MEDS: HYDROCORTISONE SOD SUCCINATE 100 MG/2 ML VIAL IV SCH ×2 (09:26→17:00)
[2020-08-17] MEDS ORDERED: IV NS 0.9% 500 ML IV ONE (09:30)
--- NOTE | 2020-08-17 09:48 | NUR ---
RN NOTE TRANSFERRED TO ICU ROOM 259. BEDSIDE REPORT GIVEN TO CUSTOMER SUCCESS INTERN.
--- NOTE | 2020-08-17 11:02 | NUR ---
patient temperature 94.1 bear hugger will be applied
[2020-08-17] MEDS: DIGOXIN INJ 0.5 MG/2 ML AMPUL IV SCH ×2 (11:17→18:00)
[2020-08-17] MEDS ORDERED: NOREPINEPHRINE 32 MG in IV NS 0.9% 218 ML IV PRN ×2 (12:30→17:00)
--- NOTE | 2020-08-17 12:43 | NUR ---
LEVO running at 0.3mcg/kg/min
[2020-08-17] MEDS ORDERED: EPINEPHRINE (1:10,000) SYRINGE 1 MG/10 ML DISP.SYRIN IVP ONE (13:02)
--- NOTE | 2020-08-17 13:36 | NUR ---
JENN followed regarding pt.s responsible libertarian. JENN called ICU and spoke to the pt.s nurse regarding pt.s level of consciousness. Nurse reported that pt. is not awake and is intubated. SW unable to speak with pt. at this time regarding advance healthcare directive. JENN called the pt.s ex-, Yvonne Downey [phone] who stated that although pt.s son, Clifford Keys is away on boot camp, he can be reached for an emergency. Yvonne requested to be kept informed of the pt.s condition. JENN informed Yvonne that or [facility] staff will contact Yvonne and attempt to reach Clifford if medical decision is needed. JENN asked Yvonne if she can provide pt.s mothers contact information as we should have an additional point of contact to make medical decisions on behalf of the patient. Yvonne stated she does not have the mothers information and stated (pt.) didnt have much of a relationship with his mother. JENN called the pt.s brother, Ángel Keys [phone] who provided SW with mothers contact information: Ysabel [phone]. EJNN called Ysabel on 3 separate occasions and received a busy dial tone. No voicemail options. SW will follow up as needed.
--- NOTE | 2020-08-17 15:15 | NUR ---
patients wounds cleaned and dressed
--- NOTE | 2020-08-17 18:11 | NUR ---
scanner not working on tweetTVs, usin manual barcode on some
--- NOTE | 2020-08-17 18:40 | NUR ---
patients temperature 98.8 bear hugger removed
--- NOTE | 2020-08-17 18:46 | NUR ---
digoxin not in pixis, called pharmacy and notified
--- NOTE | 2020-08-17 18:59 | NUR ---
report given to pot sander RN
--- NOTE | 2020-08-17 19:00 | NUR ---
Received patient orally intubated to the ventilator on AC mode,mildly sedtaed on Propofol drip ,easily arousable.responds to pain,+ strong cough and gag, not in any respiratory distress,breathing non labored.On Levophed drip for BP support. Chest tube @ left lateral chest to [facility] closed system drainage to suction.NGT but not on any feeding.
[2020-08-18] VITALS (78 sets, daily range): BP systolic 71–169; BP diastolic 38–119
--- NOTE | 2020-08-18 | NUR ---
No change in status ,mildly sedated still on Propofol but arousable,opens eyes,not in any distress.Comfort care done.needs attended.
[2020-08-18] MEDS: INSULIN REGULAR, HUMAN 100 UNIT/ML 3 ML VIAL SQ PRN ×2 (00:52→06:41)
[2020-08-18] MEDS: BLOOD SUGAR DIAGNOSTIC 1 EACH STRIP IN SCH ×4 (00:55→18:01)
[2020-08-18] MEDS: IV NS 0.9% 250 ML IV PRN (02:15)
[2020-08-18 04:17] LABS: BASOPHILS # (AUTO) 0.1 /CMM (0.0-0.2); BASOPHILS % (AUTO) 0.3 % (0.0-2.0); HEMATOCRIT 28 % (39-51); HEMOGLOBIN 8.8 g/dL (13.5-17.5); LYMPHOCYTES # (AUTO) 0.5 /CMM (0.8-4.8); LYMPHOCYTES % (AUTO) 2.6 % (20.0-44.0); MEAN CORPUSCULAR HGB CONC 32 g/dl (31.0-36.0); MEAN CORPUSCULAR VOLUME 94 fL (80-96); MONOCYTES # (AUTO) 0.4 /CMM (0.1-1.30); MONOCYTES % (AUTO) 1.7 % (2.0-12.0); NEUTROPHILS # (AUTO) 19.6 /CMM (1.8-8.9); NEUTROPHILS % (AUTO) 95.4 % (43.0-81.0); PLATELET COUNT (AUTO) 79 /CMM (150-450); RED BLOOD CELL COUNT(AUTO) 2.93 MIL/uL (4.5-6.0); WHITE BLOOD COUNT (AUTO) 20.6 K/uL (4.3-11.0)
[2020-08-18 04:41] LABS: BILIRUBIN,TOTAL 0.6 mg/dL (0.2-1.0); CALCIUM, SERUM 7.5 mg/dL (8.5-10.1); CREATININE 0.9 mg/dL (0.6-1.3); MAGNESIUM 1.6 mg/dL (1.8-2.4); PHOSPHORUS 3.6 mg/dL (2.5-4.9); TOTAL PROTEIN, SERUM 4.6 g/dL (6.4-8.2)
[2020-08-18 04:42] LABS: ALBUMIN 1.2 g/dL (3.4-5.0)
[2020-08-18 04:48] LABS: D-DIMER 10.11 mg/L(FEU (0.17-0.50)
[2020-08-18 05:10] LABS: LYMPHOCYTES % (MANUAL) 2 % (16-48); MONOCYTES % (MANUAL) 5 % (0-11.0); NEUTROPHILS % (MANUAL) 93 (42-76)
[2020-08-18] MEDS: PROPOFOL 100 ML IV PRN ×3 (05:12→17:25)
[2020-08-18 05:17] LABS: ABG BASE EXCESS -0.4 mmol/L; ABG OXYGEN SATURATION 98.1 % (92.0-98.5); ABG PCO2 32.9 mmHg (35.0-45.0); ABG PH 7.464 (7.350-7.450); ABG PO2 110.3 mmHg (75.0-100.0); AaDO2 353.4 mmHg; COHb 0.6 % (0.5-1.5); MetHb 0.3 % (0.0-1.5); O2Hb 97.2 % (94.0-97.0); PEEP,BG 0 cm H2O; SITE, ABG Left Brachial; VENT MODE, BG AC 14 550 70% +0; VT, ABG 550 mL
--- NOTE | 2020-08-18 07:00 | NUR ---
Chest tube [id number] ml serous drainage.
[2020-08-18] MEDS: MEROPENEM 1 G in IV NS 0.9% 100 ML IV SCH ×2 (08:09→20:28)
[2020-08-18] MEDS: HYDROCORTISONE SOD SUCCINATE 100 MG/2 ML VIAL IV SCH ×2 (08:11→16:15)
[2020-08-18] MEDS: FAMOTIDINE/PF INJ 20 MG/2 ML VIAL IV SCH ×2 (08:11→21:23)
--- NOTE | 2020-08-18 09:00 | NUR ---
RN NOTES DR CHAVIRA NOTIFIED REGARDING TROPONIN 1.108.
[2020-08-18] MEDS: DIGOXIN INJ 0.5 MG/2 ML AMPUL IV SCH ×2 (09:06→14:13)
[2020-08-18] MEDS: DAKINS QUARTER STRENGTH (0.125%) 480 ML BOTTLE TOP SCH (09:55)
[2020-08-18] MEDS ORDERED: PHENYLEPHRINE 10 MG/ML VIAL IV ONE (10:00)
[2020-08-18] MEDS: PHENYLEPHRINE 50 MG in IV NS 0.9% 245 ML IV PRN ×2 (10:06→17:37)
[2020-08-18] MEDS: Magnesium 1GM/D5W 100ML PREMIX 100 ML IV SCH ×2 (15:10→16:13)
--- NOTE | 2020-08-18 19:45 | NUR ---
ICU/FLIGHT INSPECTOR RECEIVED REPORT FROM DAY SHIFT NURSE, SEE FLOW SHEET FOR ASSESSMENT AND SKIN ISSUES ALONG WITH THE INTERVENTION TO THESE. PT WAS TURNED AND REPOSTIONED FOR COMFORT AND CARE
[2020-08-18 20:03] LABS: BILIRUBIN,URINE NEGATIVE (NEGATIVE); COLOR,URINE YELLOW (YELLOW); LEUKOCYTE ESTERASE ,URINE LARGE (NEGATIVE); NITRITE, URINE NEGATIVE (NEGATIVE); PROTEIN,URINE NEGATIVE (NEGATIVE); UGLUCOSE NEGATIVE (NEGATIVE); UROBILINOGEN,URINE 0.2 EU/dL (0.2)
--- NOTE | 2020-08-18 20:10 | NUR ---
ICU/BILL OF MATERIALS CLERK BLOOD CULTURE WAS DONE. ALSO BUSTAMANTE CULTURE WAS COLLECTED. AT THIS TIME THERE WAS A PM LAB COLLECTED.
[2020-08-18 20:25] LABS: BACTERIA,URINE 2+ /HPF (None Seen); RBC,URINE 21-50 /HPF (0-2); SQUAMOUS EPITHELIAL CELL,UR 0-2 /HPF (None Seen); WBC,URINE 81-100 /HPF (0-3); YEAST,URINE Moderate /HPF (None Seen)
[2020-08-19] VITALS (87 sets, daily range): BP systolic 75–133; BP diastolic 43–81
[2020-08-19] MEDS: PROPOFOL 100 ML IV PRN ×2 (00:58→12:49)
[2020-08-19] MEDS: IV NS 0.9% 250 ML IV PRN (00:58)
[2020-08-19] MEDS: PHENYLEPHRINE 50 MG in IV NS 0.9% 245 ML IV PRN ×3 (00:59→20:11)
[2020-08-19] MEDS: BLOOD SUGAR DIAGNOSTIC 1 EACH STRIP IN SCH ×5 (01:45→23:43)
[2020-08-19 05:31] LABS: BASOPHILS % (AUTO) 0.3 % (0.0-2.0); HEMATOCRIT 24 % (39-51); HEMOGLOBIN 7.6 g/dL (13.5-17.5); LYMPHOCYTES # (AUTO) 0.6 /CMM (0.8-4.8); LYMPHOCYTES % (AUTO) 4.8 % (20.0-44.0); MEAN CORPUSCULAR HGB CONC 32 g/dl (31.0-36.0); MEAN CORPUSCULAR VOLUME 94 fL (80-96); MONOCYTES # (AUTO) 0.3 /CMM (0.1-1.30); MONOCYTES % (AUTO) 2.1 % (2.0-12.0); NEUTROPHILS # (AUTO) 11.3 /CMM (1.8-8.9); NEUTROPHILS % (AUTO) 92.8 % (43.0-81.0); PLATELET COUNT (AUTO) 66 /CMM (150-450); RED BLOOD CELL COUNT(AUTO) 2.53 MIL/uL (4.5-6.0); WHITE BLOOD COUNT (AUTO) 12.2 K/uL (4.3-11.0)
[2020-08-19 05:45] LABS: CALCIUM, SERUM 7.3 mg/dL (8.5-10.1); MAGNESIUM 1.9 mg/dL (1.8-2.4)
[2020-08-19 06:05] LABS: LYMPHOCYTES % (MANUAL) 4 % (16-48); MONOCYTES % (MANUAL) 2 % (0-11.0); NEUTROPHILS % (MANUAL) 94 (42-76)
--- NOTE | 2020-08-19 07:05 | NUR ---
RN NOTES RECEIVED PT ON BED, INTUBATED, SEDATED ,TOLERATING CURRENT VENT SETTING WELL, ON TELE SR HR IN 80'S , VELEZ DRAINING TO GRAVITY, R UPPER ARM PICC LINE SITE CLEAN ,DRY AND INTACT, ASHWIN AT .5 MCG/KG/MIN , DIPRIVAN AT 10 MCG/KG/MIN RUNNING , LEFT UPPER CHEST TUBE SITE CLEAN,DRY AND INTACT, SR UP x3, CALL LIGHT WITHIN EASY REACH , CONTINUE TO MONITOR .
[2020-08-19] MEDS: HYDROCORTISONE SOD SUCCINATE 100 MG/2 ML VIAL IV SCH ×2 (08:09→17:03)
[2020-08-19] MEDS: MEROPENEM 1 G in IV NS 0.9% 100 ML IV SCH ×2 (08:09→20:07)
[2020-08-19] MEDS: FAMOTIDINE/PF INJ 20 MG/2 ML VIAL IV SCH ×2 (08:09→20:07)
[2020-08-19] MEDS: DAKINS QUARTER STRENGTH (0.125%) 480 ML BOTTLE TOP SCH (08:11)
[2020-08-19 08:16] LABS: ABG BASE EXCESS -0.2 mmol/L; ABG OXYGEN SATURATION 94.7 % (92.0-98.5); ABG PCO2 27.9 mmHg (35.0-45.0); ABG PH 7.522 (7.350-7.450); ABG PO2 74.7 mmHg (75.0-100.0); AaDO2 250.4 mmHg; COHb 2.1 % (0.5-1.5); MetHb 0.4 % (0.0-1.5); O2Hb 92.3 % (94.0-97.0); PEEP,BG 5 cm H2O; SITE, ABG Left Brachial; VT, ABG 550 mL
[2020-08-19] MEDS: POTASSIUM CHLORIDE 20 MEQ POWDER PACKET GT SCH ×3 (09:17→11:09)
[2020-08-19 12:22] LABS: D-DIMER 7.12 mg/L(FEU (0.17-0.50)
[2020-08-19] MEDS: DIGOXIN 0.25 MG TABLET PO SCH (12:54)
[2020-08-19] MEDS: IV D5W 1,000 ML IV PRN (15:15)
[2020-08-19 15:27] LABS: HEMOGLOBIN 7.5 g/dL (13.5-17.5)
--- NOTE | 2020-08-19 16:00 | NUR ---
RN NOTES DR REN GOULD REGARDING H/H 7.5, BLOOD TRANSFUSION ON HOLD PER MD ORDER .
--- NOTE | 2020-08-19 19:30 | NUR ---
ICU/UTILITY LINEMAN RECEIVED REPORT FROM DAY SHIFT NURSE, SEE FLOW SHEET FOR ASSESSMENT AND SKIN ISSUES ALONG WITH THE INTERVENTION TO THESE. PT WAS TURNED AND REPOSTIONED FOR COMFORT AND CARE
--- NOTE | 2020-08-19 20:10 | NUR ---
ICU/PROFESSOR OF SPANISH PT'S BP IS STABLE AT 120'S ASHWIN WAS DECREASED DOWN TO 0.5MCG FROM 1MCG, BY CHARGE NURSE. WILL MONITOR THIS PT'S BP
--- NOTE | 2020-08-19 20:30 | NUR ---
ICU/NUCLEAR TECHNOLOGIST PT'S BP DROPPED DOWN TO 79/53, CHARGE NURSE WAS NOTIFIED WHO THEN INCREASED THE ASHWIN TO 1 MCG. WILL MONITOR THIS PT'S BP CLOSELY
[2020-08-19] MEDS: INSULIN REGULAR, HUMAN 100 UNIT/ML 3 ML VIAL SQ PRN (23:44)
[2020-08-20] VITALS (95 sets, daily range): BP systolic 71–172; BP diastolic 41–125
[2020-08-20] MEDS ORDERED: PHENYLEPHRINE 10 MG/ML VIAL ONE (04:41)
[2020-08-20] MEDS: PROPOFOL 100 ML IV PRN ×3 (04:42→22:03)
[2020-08-20] MEDS: PHENYLEPHRINE 50 MG in IV NS 0.9% 245 ML IV PRN ×2 (04:48→12:27)
[2020-08-20 04:56] LABS: BASOPHILS % (AUTO) 0.2 % (0.0-2.0); HEMATOCRIT 22 % (39-51); LYMPHOCYTES # (AUTO) 0.4 /CMM (0.8-4.8); LYMPHOCYTES % (AUTO) 6.4 % (20.0-44.0); MEAN CORPUSCULAR HGB CONC 32 g/dl (31.0-36.0); MEAN CORPUSCULAR VOLUME 94 fL (80-96); MONOCYTES # (AUTO) 0.2 /CMM (0.1-1.30); MONOCYTES % (AUTO) 2.8 % (2.0-12.0); NEUTROPHILS # (AUTO) 6.4 /CMM (1.8-8.9); NEUTROPHILS % (AUTO) 90.6 % (43.0-81.0); PLATELET COUNT (AUTO) 69 /CMM (150-450); RED BLOOD CELL COUNT(AUTO) 2.28 MIL/uL (4.5-6.0)
[2020-08-20] MEDS: IV D5W 1,000 ML IV PRN ×2 (05:00→18:28)
[2020-08-20 05:02] LABS: HEMOGLOBIN 6.9 g/dL (13.5-17.5)
[2020-08-20 05:14] LABS: D-DIMER 4.47 mg/L(FEU (0.17-0.50)
[2020-08-20 05:20] LABS: CALCIUM, SERUM 7.1 mg/dL (8.5-10.1); CREATININE 0.9 mg/dL (0.6-1.3); MAGNESIUM 1.6 mg/dL (1.8-2.4); POTASSIUM 3.3 mmol/L (3.5-5.1)
[2020-08-20 05:32] LABS: LYMPHOCYTES % (MANUAL) 4 % (16-48); MONOCYTES % (MANUAL) 4 % (0-11.0); NEUTROPHILS % (MANUAL) 92 (42-76)
[2020-08-20 05:54] LABS: ABG BASE EXCESS -0.6 mmol/L; ABG OXYGEN SATURATION 93.9 % (92.0-98.5); ABG PCO2 33.3 mmHg (35.0-45.0); ABG PH 7.458 (7.350-7.450); ABG PO2 72.7 mmHg (75.0-100.0); AaDO2 102.1 mmHg; COHb 1.3 % (0.5-1.5); MetHb 0.3 % (0.0-1.5); O2Hb 92.4 % (94.0-97.0); SITE, ABG Left Radial
[2020-08-20] MEDS: BLOOD SUGAR DIAGNOSTIC 1 EACH STRIP IN SCH ×4 (06:13→23:20)
[2020-08-20] MEDS: INSULIN REGULAR, HUMAN 100 UNIT/ML 3 ML VIAL SQ PRN ×2 (06:16→23:20)
--- NOTE | 2020-08-20 06:50 | NUR ---
ICU/GEOPHYSICAL OBSERVER PT HAD LOW H/H 6.05/09 DR NAVARRO GAVE ORDER FOR 1 UNIT PBBC, THIS WAS BOT GIVEN ON 08/19/20 DUE TO 1500 H/H STABLE AT 7.5 HOWEVER OT WAS ALREADY T/C SO BLOOD BLANK CALLED AND GAVE THE UNIT ORDERED FROM YESTERDAY.
[2020-08-20] MEDS ORDERED: POTASSIUM CHLORIDE 20 MEQ POWDER PACKET NG SCH (08:00)
--- NOTE | 2020-08-20 08:21 | NUR ---
RN NOTES STARTED BLOOD TRANSFUSION AT THIS TIME, PATIENT STABLE , TOLERATING EET WELL, NO ACUTE RESPIRATORY DISTRESS, V/S TAKEN T-97.8, R-16, BP- 111/56, P-60, WILL MONITORING.
[2020-08-20] MEDS: DAKINS QUARTER STRENGTH (0.125%) 480 ML BOTTLE TOP SCH (08:36)
[2020-08-20] MEDS: FAMOTIDINE/PF INJ 20 MG/2 ML VIAL IV SCH ×2 (08:45→20:44)
[2020-08-20] MEDS: HYDROCORTISONE SOD SUCCINATE 100 MG/2 ML VIAL IV SCH ×2 (08:45→17:30)
--- NOTE | 2020-08-20 08:45 | NUR ---
RN NOTES PATIENT TOLERATED INFUSION WELL, UY=799/53, P-62, T-98.6, R-19 AT THIS TIME, INCREASED 75 ML/HR , PATIENT TOLERATING WELL.
[2020-08-20] MEDS: MEROPENEM 1 G in IV NS 0.9% 100 ML IV SCH ×2 (08:47→20:43)
--- NOTE | 2020-08-20 08:48 | NUR ---
RN NOTES STOP DIPRIVAN INFUSION AT THIS TIME BECAUSE OF TRYING TO EXTUBATE AT THIS TIME PER Dr HUITRON ORDER.
--- NOTE | 2020-08-20 09:15 | NUR ---
RN NOTES PATIENT TOLERATED BLOOD INFUSION WELL, NO ACUTE RTESPIRATORY DISTRESS, T-97.5, B- 111/96, P-60, INCREASED INFUSION ON 125 ML/HR INTACT. KEEP MONITORING.
--- NOTE | 2020-08-20 10:00 | NUR ---
RN NOTES PATIENT FAIL EXTUBATION, ANXIOUS, AGITATED, BACK TO THE DIPRIVAN SEDATION AGAIN. WILL MONITORING.
--- NOTE | 2020-08-20 11:25 | NUR ---
RN NOTES FINISHED BLOOD TRANSFUSION AT THIS TIME, BP 78/44, P-62, R-12. WNO ACUTE RESPIRATORY DISTRESS, WILL MONITORING, ORDERED H/H AT THIS TIME IN RECHECK IN 1 HR.
[2020-08-20 12:30] LABS: HEMOGLOBIN 9.4 g/dL (13.5-17.5)
[2020-08-20] MEDS: DIGOXIN 0.25 MG TABLET PO SCH (13:00)
[2020-08-20] MEDS ORDERED: GLUCERNA 1.2 1,000 ML BOTTLE NG PRN (18:30)
--- NOTE | 2020-08-20 18:30 | NUR ---
RN NOTES PM CARE DOME, SUCTIONED, PATIENT TOLERATED EET SETTING WELL, NO ACUTE RESPIRATORY DISTRESS, HR 44 BRADYCARDIA, PATIENT SENSITIVE WITH PHENYLEPHRINE TITRATED DOWN 0.5 MCG, DIPRIVAN 20 MCG, AND D5W @75 ML/HR INTACT, SCROTUM SWOLLEN, ELEVATED, EDEMA ALSO BLE, AN UPPER HANDS, CHEST TUBE DRAINING 75ML MARKED. DRESSING CHANGED, VELEZ DRAINING YELLOW OUTPUT, ASSIST TURN AND REPOSTION Q2 HR. ENDORSED ONCOMING NURSE FOLLOW PLAN OF CARE.
[2020-08-21] VITALS (90 sets, daily range): BP systolic 90–145; BP diastolic 52–76
[2020-08-21] MEDS: PHENYLEPHRINE 50 MG in IV NS 0.9% 245 ML IV PRN ×2 (01:01→15:49)
[2020-08-21 04:56] LABS: BASOPHILS % (AUTO) 0.3 % (0.0-2.0); HEMATOCRIT 30 % (39-51); HEMOGLOBIN 9.8 g/dL (13.5-17.5); LYMPHOCYTES # (AUTO) 0.5 /CMM (0.8-4.8); LYMPHOCYTES % (AUTO) 5.3 % (20.0-44.0); MEAN CORPUSCULAR HGB CONC 32 g/dl (31.0-36.0); MEAN CORPUSCULAR VOLUME 92 fL (80-96); MONOCYTES # (AUTO) 0.3 /CMM (0.1-1.30); MONOCYTES % (AUTO) 3.2 % (2.0-12.0); NEUTROPHILS % (AUTO) 91.2 % (43.0-81.0); PLATELET COUNT (AUTO) 91 /CMM (150-450); RED BLOOD CELL COUNT(AUTO) 3.32 MIL/uL (4.5-6.0); WHITE BLOOD COUNT (AUTO) 9.9 K/uL (4.3-11.0)
[2020-08-21 05:12] LABS: CALCIUM, SERUM 7.1 mg/dL (8.5-10.1); CREATININE 0.8 mg/dL (0.6-1.3); POTASSIUM 3.5 mmol/L (3.5-5.1)
[2020-08-21 05:14] LABS: D-DIMER 4.33 mg/L(FEU (0.17-0.50)
[2020-08-21] MEDS: PROPOFOL 100 ML IV PRN ×3 (05:22→20:35)
[2020-08-21 05:23] LABS: EOSINOPHILS % (MANUAL) 3 % (0-4); LYMPHOCYTES % (MANUAL) 4 % (16-48); MONOCYTES % (MANUAL) 5 % (0-11.0); NEUTROPHILS % (MANUAL) 88 (42-76)
[2020-08-21 05:27] LABS: ABG BASE EXCESS -0.2 mmol/L; ABG PCO2 33.6 mmHg (35.0-45.0); ABG PH 7.459 (7.350-7.450); ABG PO2 110.1 mmHg (75.0-100.0); AaDO2 64.3 mmHg; COHb 0.9 % (0.5-1.5); MetHb 0.3 % (0.0-1.5); O2Hb 96.8 % (94.0-97.0); PEEP,BG 5 cm H2O; SITE, ABG Left Radial; VT, ABG 500 mL
[2020-08-21] MEDS: BLOOD SUGAR DIAGNOSTIC 1 EACH STRIP IN SCH ×3 (05:29→16:50)
[2020-08-21] MEDS: INSULIN REGULAR, HUMAN 100 UNIT/ML 3 ML VIAL SQ PRN ×3 (05:31→16:53)
--- NOTE | 2020-08-21 07:50 | NUR ---
RT PATIENT REC'D ORALLY INTUBATED ON [facility] VENT WITH ORDERED SETTINGS. ALARMS CHECKED + AUDIBLE. AIRWAY SECURE AND IN PROPER POSITION. KATHERINEU BAG AT HOB. CONT CURRENT PLAN OF RESP CARE. Addendum: 08/21/20 at 1517 by SULAIMAN MISTRY RT Amended: Links added.
[2020-08-21] MEDS: IV D5W 1,000 ML IV PRN ×2 (07:54→21:48)
[2020-08-21] MEDS: DAKINS QUARTER STRENGTH (0.125%) 480 ML BOTTLE TOP SCH (07:55)
--- NOTE | 2020-08-21 08:00 | NUR ---
RN NOTES RECEIVED PT ORALLY INTUBATED AND SEDATED. ETT AT THE LIP, AC 14 TV 500 FIO2 40% PEEP OF 5 INCREASED. PT TOLERATING EET VENT SETTINGS WELL, NO SOB OR RESP DISTRESS NOTED. BREATHING IS EVEN AND UNLABORED AT THIS TIME. SATURATING 96%. PT ON AGRICULTURAL PURCHASING AGENT SR BRADYCARDIA 52, IV SITES FLUSHED ASEPTICALLY. PICC HAS PROPOFOL RUNNING AT 20MCG, AND NORSYNEPHRINE 0.5MCG NG TUBE PRESENT AUSCULTATED TO CONFIRM PLACEMENT, NE RESIDUAL, STARTED GLUCERNA 1.2 @20CC/HR INTACT. ADMINISTERED SCHEDULED MEDICATION VIA NGT, SUCTION, KEEP HOB ELEVATED. F/C DRAINING VIA GRAVITY, YELLOW CLEAR FREE OF SEDIMENT. SAFETY MEASURES IN PLACE. SIDE RAILS UP X2. BED IS LOCKED IN LOWEST POSITION. ASSIST TURN AND REPOSTION Q 2 HR. WILL CONTINUE TO MONITOR.
[2020-08-21] MEDS: MEROPENEM 1 G in IV NS 0.9% 100 ML IV SCH ×2 (08:01→20:04)
[2020-08-21] MEDS: HYDROCORTISONE SOD SUCCINATE 100 MG/2 ML VIAL IV SCH ×2 (08:02→16:50)
[2020-08-21] MEDS: FAMOTIDINE/PF INJ 20 MG/2 ML VIAL IV SCH ×2 (08:13→20:04)
[2020-08-21] MEDS: GLUCERNA 1.2 1,000 ML BOTTLE NG PRN (09:28)
--- NOTE | 2020-08-21 09:30 | NUR ---
rn notes started NGT feeding at this time Glucerna 1.2 at 20 ml/hr, no residual, placement checked, keep hob elevated.
--- NOTE | 2020-08-21 12:08 | NUR ---
JENN received call from the pt.'s mother, Ysabel [phone] stating that she is available to make medical decisions of the pt.'s behalf if pt.'s sonClifford cannot be reached. Noted. JENN notified charge nurse.
[2020-08-21] MEDS: DIGOXIN 0.25 MG TABLET PO SCH (13:00)
--- NOTE | 2020-08-21 18:30 | NUR ---
RN NOTES PM CARE DONE, ADMINISTERED SCHEDULED MEDICATION, , NO ACUTE RESPIRATORY DISTRESS, PATIENT BRADYCARDIC ON MONITOR SHOWS 50. TOLERATING VENT SETTINGS WELL, NO SOB OR RESP DISTRESS NOTED. SATURATING 96%. IV SITES FLUSHED ASEPTICALLY. PICC HAS PROPOFOL RUNNING AT 20MCG, AND NORSYNEPHRINE 0.5MCG NG TUBE PRESENT AUSCULTATED TO CONFIRM PLACEMENT, RESIDUAL 80 ML, GLUCERNA 1.2 @20CC/HR INTACT, KEEP HOB ELEVATED. F/C DRAINING VIA GRAVITY, YELLOW CLEAR FREE OF SEDIMENT. SAFETY MEASURES IN PLACE. SIDE RAILS UP X2. BED IS LOCKED IN LOWEST POSITION. ASSIST TURN AND REPOSTION Q 2 HR. ENDORSED ONCOMING NURSE FOLLOW PLAN OF CARE.
--- NOTE | 2020-08-21 19:30 | NUR ---
PROCESS CONTROLLER OPENING NOTES: Rec'd pt in bed, intubated 7/23cm at the lip and sedated. SR/SB on tele monitor. GTF in place w/ Glucerna infusing at 20ml/hr. JENIFFER PICC line in place w/ Diprivan infusing at 20mcg and Roger infusing at 0.3mcg. Chest tube in place, connected to suction. Christopher catheter in place draining urine via gravity. Safety measures in place.
--- NOTE | 2020-08-21 20:41 | NUR ---
Received patient intubated on vent AC 14 500 30% +5. On ETT tube 7.0 25cm @ Lip. No respiratory distress noted. Suctioned moderate amounts of thick clear thick secretions. Ambu bag at bedside. Will continue to monitor. Addendum: 08/21/20 at 2042 by KAYLIE RAYMOND RT Amended: Links added.
[2020-08-22] VITALS (95 sets, daily range): BP systolic 67–153; BP diastolic 34–81
[2020-08-22] MEDS: BLOOD SUGAR DIAGNOSTIC 1 EACH STRIP IN SCH ×4 (00:01→17:20)
[2020-08-22] MEDS: INSULIN REGULAR, HUMAN 100 UNIT/ML 3 ML VIAL SQ PRN ×4 (00:03→17:21)
--- NOTE | 2020-08-22 04:37 | NUR ---
ANTENNA ENGINEER NOTE: Pt's temp noted to be 93.6 axillary. Placed pt back on aparna hugger
[2020-08-22] MEDS: PROPOFOL 100 ML IV PRN ×3 (04:42→17:19)
[2020-08-22 04:47] LABS: BASOPHILS % (AUTO) 0.2 % (0.0-2.0); HEMATOCRIT 30 % (39-51); LYMPHOCYTES # (AUTO) 0.7 /CMM (0.8-4.8); LYMPHOCYTES % (AUTO) 8.9 % (20.0-44.0); MEAN CORPUSCULAR HGB CONC 33 g/dl (31.0-36.0); MEAN CORPUSCULAR VOLUME 91 fL (80-96); MONOCYTES # (AUTO) 0.2 /CMM (0.1-1.30); MONOCYTES % (AUTO) 3.1 % (2.0-12.0); NEUTROPHILS # (AUTO) 6.6 /CMM (1.8-8.9); NEUTROPHILS % (AUTO) 87.8 % (43.0-81.0); PLATELET COUNT (AUTO) 79 /CMM (150-450); RED BLOOD CELL COUNT(AUTO) 3.35 MIL/uL (4.5-6.0); WHITE BLOOD COUNT (AUTO) 7.5 K/uL (4.3-11.0)
[2020-08-22 05:03] LABS: CALCIUM, SERUM 7.2 mg/dL (8.5-10.1); CREATININE 0.8 mg/dL (0.6-1.3); MAGNESIUM 1.4 mg/dL (1.8-2.4); PHOSPHORUS 2.6 mg/dL (2.5-4.9); POTASSIUM 3.1 mmol/L (3.5-5.1)
[2020-08-22 05:05] LABS: D-DIMER 3.84 mg/L(FEU (0.17-0.50)
[2020-08-22 05:17] LABS: LYMPHOCYTES % (MANUAL) 4 % (16-48); MONOCYTES % (MANUAL) 1 % (0-11.0); NEUTROPHILS % (MANUAL) 95 (42-76)
--- NOTE | 2020-08-22 07:10 | NUR ---
RN INITIAL NOTES RECEIVED PT INTUBATED, ON VENT. NO RESPIRATORY DISTRESS NOTED. NO SOB NOTED. NO SIGNS OF PAIN NOTED. IVF INFUSING. PT ON DIPRIVAN AT LEVOPHED DRIP. WILL TITRATE ACCORDINGLY. TOLERATING TUBE FEEDING WELL. VELEZ IN PLACE. NO HEMATURIA NOTED. WILL MONITOR
[2020-08-22] MEDS: MEROPENEM 1 G in IV NS 0.9% 100 ML IV SCH (07:49)
[2020-08-22] MEDS: FAMOTIDINE/PF INJ 20 MG/2 ML VIAL IV SCH ×2 (08:28→20:25)
[2020-08-22] MEDS: HYDROCORTISONE SOD SUCCINATE 100 MG/2 ML VIAL IV SCH ×2 (08:29→17:09)
[2020-08-22] MEDS: DAKINS QUARTER STRENGTH (0.125%) 480 ML BOTTLE TOP SCH (08:29)
[2020-08-22] MEDS: POTASSIUM CHLORIDE 20 MEQ TAB.PRT.SR PO SCH ×2 (11:23→12:28)
[2020-08-22] MEDS: Magnesium 1GM/D5W 100ML PREMIX 100 ML IV SCH ×4 (12:01→15:07)
[2020-08-22] MEDS: DIGOXIN 0.25 MG TABLET PO SCH (12:04)
[2020-08-22] MEDS: IV D5W 1,000 ML IV PRN (12:27)
[2020-08-22] MEDS: GLUCERNA 1.2 1,000 ML BOTTLE NG PRN (15:07)
[2020-08-22] MEDS: PHENYLEPHRINE 50 MG in IV NS 0.9% 245 ML IV PRN (17:20)
--- NOTE | 2020-08-22 18:26 | NUR ---
RN CLOSING NOTES NO SIGNIFICANT CHANGE NOTED. REMAINS INTUBATED, ON VENT. NO SOB NOTED. TOLERATING TUBE FEEDING WELL. TX PROVIDED ORDERED. KEPT CLEAN AND DRY. REPOSITIONED. BLE ELEVATED. WILL ENDORSE FOR CONTINUITY OF CARE
[2020-08-23] VITALS (92 sets, daily range): BP systolic 57–147; BP diastolic 39–75
[2020-08-23] MEDS: INSULIN REGULAR, HUMAN 100 UNIT/ML 3 ML VIAL SQ PRN ×4 (00:12→17:09)
[2020-08-23] MEDS: BLOOD SUGAR DIAGNOSTIC 1 EACH STRIP IN SCH ×4 (00:15→17:03)
[2020-08-23] MEDS: PROPOFOL 100 ML IV PRN ×3 (01:27→17:03)
[2020-08-23] MEDS: IV D5W 1,000 ML IV PRN ×2 (04:21→16:00)
[2020-08-23 04:28] LABS: BASOPHILS % (AUTO) 0.2 % (0.0-2.0); EOSINOPHILS % (AUTO) 0.1 % (0.0-6.0); HEMATOCRIT 32 % (39-51); HEMOGLOBIN 10.6 g/dL (13.5-17.5); LYMPHOCYTES # (AUTO) 0.7 /CMM (0.8-4.8); LYMPHOCYTES % (AUTO) 8.5 % (20.0-44.0); MEAN CORPUSCULAR HGB CONC 33 g/dl (31.0-36.0); MEAN CORPUSCULAR VOLUME 91 fL (80-96); MONOCYTES # (AUTO) 0.2 /CMM (0.1-1.30); MONOCYTES % (AUTO) 2.9 % (2.0-12.0); NEUTROPHILS # (AUTO) 7.4 /CMM (1.8-8.9); NEUTROPHILS % (AUTO) 88.3 % (43.0-81.0); PLATELET COUNT (AUTO) 89 /CMM (150-450); RED BLOOD CELL COUNT(AUTO) 3.53 MIL/uL (4.5-6.0); WHITE BLOOD COUNT (AUTO) 8.4 K/uL (4.3-11.0)
[2020-08-23 04:32] LABS: CALCIUM, SERUM 7.3 mg/dL (8.5-10.1); CREATININE 0.9 mg/dL (0.6-1.3); MAGNESIUM 2.3 mg/dL (1.8-2.4); PHOSPHORUS 2.6 mg/dL (2.5-4.9); POTASSIUM 3.2 mmol/L (3.5-5.1)
[2020-08-23 05:26] LABS: BAND % (MANUAL) 3 % (0.0-5.0); LYMPHOCYTES % (MANUAL) 5 % (16-48); MONOCYTES % (MANUAL) 2 % (0-11.0); NEUTROPHILS % (MANUAL) 90 (42-76)
--- NOTE | 2020-08-23 07:15 | NUR ---
RN INITIAL NOTES RECEIVED PT INTUBATED, ON VENT. NO RESPIRATORY DISTRESS NOTED. NO SOB NOTED. NO SIGNS OF PAIN NOTED. IVF INFUSING. PT ON DIPRIVAN AT ASHWIN DRIP. WILL TITRATE ACCORDINGLY. TOLERATING TUBE FEEDING WELL. VELEZ IN PLACE. NO HEMATURIA NOTED. WILL MONITOR
--- NOTE | 2020-08-23 07:17 | NUR ---
RIG WELDER OPENING NOTES: Rec'd pt in bed, intubated 7/23cm at the lip and sedated. SR/SB on tele monitor. GTF in place w/ Glucerna infusing at 20ml/hr. JENIFFER PICC line in place w/ Diprivan infusing at 20mcg, Roger infusing at 0.3mcg, and D5 at 75ml/hr. Chest tube in place, connected to suction. Christopher catheter in place draining urine via gravity. Safety measures in place.
[2020-08-23] MEDS ORDERED: POTASSIUM CHLORIDE 20 MEQ POWDER PACKET GT SCH (07:30)
[2020-08-23] MEDS: DAKINS QUARTER STRENGTH (0.125%) 480 ML BOTTLE TOP SCH (08:20)
[2020-08-23] MEDS: FAMOTIDINE/PF INJ 20 MG/2 ML VIAL IV SCH ×2 (08:20→22:19)
[2020-08-23] MEDS: HYDROCORTISONE SOD SUCCINATE 100 MG/2 ML VIAL IV SCH ×2 (08:20→16:43)
[2020-08-23] MEDS: DIGOXIN 0.25 MG TABLET PO SCH (12:11)
[2020-08-23] MEDS: GLUCERNA 1.2 1,000 ML BOTTLE NG PRN (13:56)
[2020-08-23] MEDS: PHENYLEPHRINE 50 MG in IV NS 0.9% 245 ML IV PRN (16:01)
--- NOTE | 2020-08-23 18:27 | NUR ---
RN CLOSING NOTES NO SIGNIFICANT CHANGE NOTED. REMAINS INTUBATED, ON VENT. NO SOB NOTED. TOLERATING TUBE FEEDING WELL. TX PROVIDED ORDERED. KEPT CLEAN AND DRY. REPOSITIONED. BLE ELEVATED. WILL ENDORSE FOR CONTINUITY OF CARE Addendum: 08/23/20 at 1847 by OPAL GRAHAM RN 1500 SPOKE WITH HAILEY (BROTHER). UPDATED ALFREDITO PT'S CONDITION. PER HAILEY, FAMILY DECIDED TO DO TERMINAL EXTUBATION IN AM. WILL NOTIFY DR REZA IN AM.
--- NOTE | 2020-08-23 20:09 | NUR ---
PT REC'D ORALLY INTUBATED VIA ETT 7.0 SECURED @ 25 CM [facility] WITH THE SETTINGS OF AC 14, 500,30%,PEEP 5. PT IS AWAKE AND NO RESPIRATORY DISTRESS NOTED AT THIS TIME. SX DONE . ALARMS ARE SET AND AUDIBLE. VENT PLUGGED INTO RED OUTLET. AMBU BAG@ BEDSIDE. WILL CONTINUE TO MONITOR T/O THE SHIFT.
[2020-08-24] VITALS (81 sets, daily range): BP systolic 66–189; BP diastolic 35–95
[2020-08-24] MEDS: INSULIN REGULAR, HUMAN 100 UNIT/ML 3 ML VIAL SQ PRN ×2 (00:19→18:31)
[2020-08-24] MEDS: IV D5W 1,000 ML IV PRN (04:40)
[2020-08-24] MEDS: PROPOFOL 100 ML IV PRN ×4 (04:41→23:15)
[2020-08-24] MEDS: BLOOD SUGAR DIAGNOSTIC 1 EACH STRIP IN SCH ×5 (06:00→23:41)
[2020-08-24 06:46] LABS: BASOPHILS % (AUTO) 0.3 % (0.0-2.0); EOSINOPHILS % (AUTO) 0.5 % (0.0-6.0); HEMATOCRIT 30 % (39-51); HEMOGLOBIN 9.9 g/dL (13.5-17.5); LYMPHOCYTES # (AUTO) 0.8 /CMM (0.8-4.8); LYMPHOCYTES % (AUTO) 10.2 % (20.0-44.0); MEAN CORPUSCULAR HGB CONC 33 g/dl (31.0-36.0); MEAN CORPUSCULAR VOLUME 91 fL (80-96); MONOCYTES # (AUTO) 0.2 /CMM (0.1-1.30); MONOCYTES % (AUTO) 2.6 % (2.0-12.0); NEUTROPHILS # (AUTO) 6.6 /CMM (1.8-8.9); NEUTROPHILS % (AUTO) 86.4 % (43.0-81.0); PLATELET COUNT (AUTO) 94 /CMM (150-450); RED BLOOD CELL COUNT(AUTO) 3.33 MIL/uL (4.5-6.0); WHITE BLOOD COUNT (AUTO) 7.7 K/uL (4.3-11.0)
[2020-08-24 07:03] LABS: CALCIUM, SERUM 7.3 mg/dL (8.5-10.1); CREATININE 0.9 mg/dL (0.6-1.3); MAGNESIUM 1.8 mg/dL (1.8-2.4); PHOSPHORUS 2.6 mg/dL (2.5-4.9); POTASSIUM 3.7 mmol/L (3.5-5.1)
[2020-08-24] MEDS: PHENYLEPHRINE 50 MG in IV NS 0.9% 245 ML IV PRN ×2 (07:15→13:03)
--- NOTE | 2020-08-24 07:28 | NUR ---
agricultural inspector.initial assessment.
--- NOTE | 2020-08-24 08:00 | NUR ---
RN NOTES RECEIVED PT INTUBATED EET ON VENT TOLERATED WELL, CALM AND COOPERATIVE. NO RESPIRATORY DISTRESS NOTED. NO SIGNS OF PAIN NOTED. INFUSING DIPRIVAN AT 20MCG, LEVOPHED DRIP O.5MCG. WILL TITRATE ACCORDINGLY WITH PROTOCOL. TOLERATING TUBE FEEDING WITH RESIDUAL OF 80 ML, FLASHED 300 ML OF WATER, ALSO ADMINISTERED SCHEDULED MEDICATION. EDEMA GENERALIZED . VELEZ IN PLACE DRAINING BY GRAVIRY SEDIMENTED OUTPUT. CHEST TUBE DRAINING WELL , DRESSING CHANGED, ASSIST TURNNA D REPOSTION Q 2 HR, KEEP HOB ELEVATED. SIDE RAILS UP WILL MONITORING.
[2020-08-24] MEDS: DAKINS QUARTER STRENGTH (0.125%) 480 ML BOTTLE TOP SCH (09:00)
[2020-08-24] MEDS: FAMOTIDINE/PF INJ 20 MG/2 ML VIAL IV SCH ×2 (10:07→21:52)
[2020-08-24] MEDS: HYDROCORTISONE SOD SUCCINATE 100 MG/2 ML VIAL IV SCH ×2 (10:07→18:22)
[2020-08-24] MEDS: DIGOXIN 0.25 MG TABLET PO SCH (12:45)
--- NOTE | 2020-08-24 13:28 | NUR ---
rn notes patient get junctional at this time pulse 50 to 66, also hold digoxin, notified continuous process tanner rotary drum Dr Diaz, per md no new order keep monitoring.
--- NOTE | 2020-08-24 15:33 | NUR ---
RN NOTES PATIENT DNR/DNI AT THIS TIME, PER FAMILY GOING TO VISIT MORNING 08/25/20, AND AFTER VISITING PATIENT WILL BE COMFORT MEASURE. Dr REZA, AND Dr TOBIN SPOKEN FAMILY FOR DECISION.
[2020-08-24] MEDS: GLUCERNA 1.2 1,000 ML BOTTLE NG PRN (18:29)
--- NOTE | 2020-08-24 18:30 | NUR ---
RN NOTES PM CARE DONE, DUE MEDICATION ADMINISTERED, PATIENT NOW DNR/DNI, EET VENT SETTING TOLERATED WELL, CALM AND COOPERATIVE. NO RESPIRATORY DISTRESS NOTED. NO SIGNS OF PAIN NOTED. INFUSING DIPRIVAN AT 20MCG, LEVOPHED DRIP O.7MCG. WILL TITRATE ACCORDINGLY WITH PROTOCOL. TOLERATING TUBE FEEDING WITH RESIDUAL OF 80 ML, FLASHED 300 ML OF WATER. EDEMA GENERALIZED. VELEZ IN PLACE DRAINING BY GRAVITY WITH SEDIMENTED OUTPUT. CHEST TUBE DRAINING WELL 400ML, ASSIST TURN AND REPOSTION Q 2 HR, KEEP HOB ELEVATED. SIDE RAILS UP. ENDORSED ONCOMING NURSE FOLLOW PLAN OF CARE.
--- NOTE | 2020-08-24 19:34 | NUR ---
professor of floriculture. initial assessment. received the pt rest on the bed. orally intubated. sedated with diprivan. ett #7,lip 23,ac 14,tv 500,fio2 30%,peep 5. sat 98%. no acute distress noted. nurse monitoring showing s garrison.lt side chest tube intact. iv rt upper arm picc line. rt femoral hd cath. ngt intact. ivf d5w 75 ml/h,roopa 0.5 mcg/kg/min,diprivan 20mcg/kg/min, hob elevated. sacral wound . will continue to monitor vitals.
[2020-08-25] VITALS (50 sets, daily range): BP systolic 75–129; BP diastolic 40–80
--- NOTE | 2020-08-25 00:37 | NUR ---
curriculum and instruction specialist. remaining same vent setting tolerated well. no new changes. will continue to monitor
[2020-08-25] MEDS: PHENYLEPHRINE 50 MG in IV NS 0.9% 245 ML IV PRN (03:07)
--- NOTE | 2020-08-25 03:40 | NUR ---
curriculum developer. am care, given. linen changed, remaining same vent setting tolerated well. sat 98%. no acute distress noted. intermodal dispatcher showing s garrison. fc patent. lt side chest tube intact. iv rt upper arm picc line. ivf d5w 75 ml/h,ngt feeding tolerated well. hob elevated. turn nad reposition q2h,. afebrile. will continue to monitor vitals.
[2020-08-25 05:19] LABS: BASOPHILS % (AUTO) 0.2 % (0.0-2.0); EOSINOPHILS % (AUTO) 0.3 % (0.0-6.0); HEMATOCRIT 29 % (39-51); HEMOGLOBIN 9.5 g/dL (13.5-17.5); LYMPHOCYTES # (AUTO) 0.6 /CMM (0.8-4.8); LYMPHOCYTES % (AUTO) 9.5 % (20.0-44.0); MEAN CORPUSCULAR HGB CONC 33 g/dl (31.0-36.0); MEAN CORPUSCULAR VOLUME 90 fL (80-96); MONOCYTES # (AUTO) 0.2 /CMM (0.1-1.30); MONOCYTES % (AUTO) 3.1 % (2.0-12.0); NEUTROPHILS # (AUTO) 5.8 /CMM (1.8-8.9); NEUTROPHILS % (AUTO) 86.9 % (43.0-81.0); RED BLOOD CELL COUNT(AUTO) 3.24 MIL/uL (4.5-6.0); WHITE BLOOD COUNT (AUTO) 6.7 K/uL (4.3-11.0)
[2020-08-25 05:22] LABS: PLATELET COUNT (AUTO) 88 /CMM (150-450)
[2020-08-25 05:47] LABS: CALCIUM, SERUM 7.4 mg/dL (8.5-10.1); CREATININE 0.9 mg/dL (0.6-1.3); MAGNESIUM 1.9 mg/dL (1.8-2.4); PHOSPHORUS 3.2 mg/dL (2.5-4.9); POTASSIUM 3.3 mmol/L (3.5-5.1)
[2020-08-25] MEDS: BLOOD SUGAR DIAGNOSTIC 1 EACH STRIP IN SCH ×3 (06:37→18:14)
[2020-08-25] MEDS: PROPOFOL 100 ML IV PRN (06:44)
--- NOTE | 2020-08-25 07:00 | NUR ---
PT RECEIVED IN BED ALERT ON VENT SETTINGS. PT FAMILY TO VISIT AND DISCUSS EXTUBATION. PT HAS JENIFFER PICC AND RIGHT GROIN PIGTAIL CATH. PT ON 20 MCG DIPROVAN AND 0.3 MCG ASHWIN. PT HAS NGT FEEDING RUNNING GLUCERNA AT 20 ML/HR. PT IN BED LOCKED LOWEST POSITION ,CALL LIGHT WITHIN REACH, ALL SAFETY MEASURES IN PLACE. WILL CONTINUE TO MONITOR.
[2020-08-25] MEDS ORDERED: DC PROPOFOL WHEN EXTUBATED XX PRN (08:00)
[2020-08-25] MEDS: FAMOTIDINE/PF INJ 20 MG/2 ML VIAL IV SCH ×2 (10:19→20:50)
[2020-08-25] MEDS: HYDROCORTISONE SOD SUCCINATE 100 MG/2 ML VIAL IV SCH ×2 (10:19→16:50)
[2020-08-25] MEDS: DAKINS QUARTER STRENGTH (0.125%) 480 ML BOTTLE TOP SCH (10:19)
[2020-08-25] MEDS ORDERED: MORPHINE SULFATE INJ 2 MG/ML DISP.SYRIN IV PRN (11:00)
[2020-08-25] MEDS ORDERED: MORPHINE SULFATE INJ 4 MG/ML DISP.SYRIN IVP PRN (11:00)
[2020-08-25] MEDS: POTASSIUM CL. PREMIX PERIPHER. 50 ML IV SCH ×2 (11:41→12:00)
[2020-08-25] MEDS: DIGOXIN 0.25 MG TABLET PO SCH (13:52)
--- NOTE | 2020-08-25 14:20 | NUR ---
MS TRANSFER FROM ICU NOTES RECEIVED PT TRANSFER FROM ICU IN BED ALERT,APHASIC AND WITH EYES OPEN. ON O2 AT 4L/MIN VIA NC. WITH O2 SAT 90%. NO SOB .HOB ELEVATED. PT HAS JENIFFER PICC AND RIGHT GROIN PIGTAIL CATH. PT HAS NGT FEEDING RUNNING GLUCERNA AT 20 ML/HR. WITH VELEZ CATHETER INTACT DRAINING YELLOW DEBBIE URINE OUTPUT. PT IN BED LOCKED LOWEST POSITION ,CALL LIGHT WITHIN REACH, WILL CONTINUE TO MONITOR.
--- NOTE | 2020-08-25 14:22 | NUR ---
PT TRANSFERRED TO JANIS VELASQUEZ RECEIVED REPORT
[2020-08-25] MEDS ORDERED: POTASSIUM CL. PREMIX PERIPHER. 50 ML IV SCH (16:30)
--- NOTE | 2020-08-25 16:46 | NUR ---
PT'S KCK IV WAS TO BE ADMINISTERED AT 12NN IN ICU BUT MISSED IT/NOTIFIED PHARMACIST AND ORDERED A NEW BAG OF KCL IV. Addendum: 08/25/20 at 1647 by JANIS DAVIS RN KCL IV
--- NOTE | 2020-08-25 17:30 | NUR ---
SPONGED BATH GIVEN,WOUND TX DONE ,,KEPT CLEAN AND DRY AND REPOSITIONED PT.KEPT COMFORTABLE.ELEVATED OF BED AND CONTINUED GT FEEDING.
--- NOTE | 2020-08-25 17:50 | NUR ---
PT IS NOTED TO HAVE SHALLOW BREATHING AND WAS PALE RESP RATE OF 14.CALLED PT'S FAMILY,GREY MORAN TWICE BUT TO NO AVAIL. NOTIFIED INSTALLER,MOODY AND SECURITY FOR ALLOWING VISITORS TO SEE THE PT WITH 2 PEOPLE MAX AND FOR 10 MINS STAY ONLY.
[2020-08-25] MEDS: INSULIN REGULAR, HUMAN 100 UNIT/ML 3 ML VIAL SQ PRN (18:16)
--- NOTE | 2020-08-25 19:53 | NUR ---
RN NOTES PT RECEIVED IN BED RECEIVED PT ALERT,APHASIC AND WITH EYES OPEN. ON O2 AT 4L/MIN VIA NC. WITH O2 SAT 90%. NO SOB .HOB ELEVATED. PT HAS JENIFFER PICC AND RIGHT GROIN PIGTAIL CATH. PT HAS NGT FEEDING RUNNING GLUCERNA AT 20 ML/HR. WITH VELEZ CATHETER INTACT DRAINING YELLOW DEBBIE URINE OUTPUT. PT IN BED LOCKED LOWEST POSITION ,CALL LIGHT WITHIN REACH, WILL CONTINUE TO MONITOR.
[2020-08-25] MEDS: IV D5W 1,000 ML IV PRN (21:06)
--- NOTE | 2020-08-25 22:30 | NUR ---
PT DESATURATING IN THE 60S PLACED PATIENT ON NON REBREATHER MASK 15L SATURATING AT 98% MD MADE AWARE WILL CONTINUE TO MONITOR
--- NOTE | 2020-08-25 22:41 | NUR ---
RN NOTES CONTACTED RESPONSIBLE DEMOCRAT INFORMED OF PATIENTS DECLINING CONDITION. WILL CONTINUE TO MONITOR.
--- NOTE | 2020-08-25 23:18 | NUR ---
RN NOTES PT WAS PRONOUNCED NO PULSE PALPATED OR AUSCULTATED, NO RESPIRATIONS OBSERVED OR HEARD PUPILS FIXED AND DILATED SKIN COLD TO THE TOUCH.
--- NOTE | 2020-08-25 23:25 | NUR ---
RN NOTES NURSING MILL BEAM FITTER LILLY VANEGAS INFORMED OF PATIENT EXPIRATION
--- NOTE | 2020-08-25 23:30 | NUR ---
RN NOTES MD CLAUDINE RUVALCABA INFORMED OF PATIENT EXPIRATION
--- NOTE | 2020-08-25 23:35 | NUR ---
RN PATTI DOMINGUEZ WAS INFORMED OF PATIENT EXPIRATION VIA PHONE CALL. PHONE WAS NOT ANSWERED LEFT A MESSAGE.
== END 2020-08-26 01:21 | disposition expired | DRG 720 ==
LOC: EDBD 18:21 → ER 18:21 → ICU 21:44 → EDBD 21:44 → TELE 08-15 16:13 → ICU 08-17 08:55 → MED 08-25 14:13
PROVIDERS: ATTEND Internal Medicine
PROC: 06HY33Z Insertion of Infusion Device into Lower Vein, Percutaneous Approach (ICD-10-PCS; 2020-08-06)
PROC: 5A1955Z Respiratory Ventilation, Greater than 96 Consecutive Hours (ICD-10-PCS; principal; 2020-08-07)
PROC: 0BH18EZ Insertion of Endotracheal Airway into Trachea, Via Natural or Artificial Opening Endoscopic (ICD-10-PCS; 2020-08-07)
PROC: 30233N1 Transfusion of Nonautologous Red Blood Cells into Peripheral Vein, Percutaneous Approach (ICD-10-PCS; 2020-08-07)
PROC: 5A1D70Z Performance of Urinary Filtration, Intermittent, Less than 6 Hours Per Day (ICD-10-PCS; 2020-08-07)
PROC: 5A2204Z Restoration of Cardiac Rhythm, Single (ICD-10-PCS; 2020-08-08)
PROC: 0W9B30Z Drainage of Left Pleural Cavity with Drainage Device, Percutaneous Approach (ICD-10-PCS; 2020-08-08)
PROC: 05H533Z Insertion of Infusion Device into Right Subclavian Vein, Percutaneous Approach (ICD-10-PCS; 2020-08-08)
PROC: B546ZZA Ultrasonography of Right Subclavian Vein, Guidance (ICD-10-PCS; 2020-08-08)
PROC: 02HV33Z Insertion of Infusion Device into Superior Vena Cava, Percutaneous Approach (ICD-10-PCS; 2020-08-08)
PROC: B548ZZA Ultrasonography of Superior Vena Cava, Guidance (ICD-10-PCS; 2020-08-08)
PROC: 5A1955Z Respiratory Ventilation, Greater than 96 Consecutive Hours (ICD-10-PCS; 2020-08-17)
PROC: 5A12012 Performance of Cardiac Output, Single, Manual (ICD-10-PCS; 2020-08-17)
PROC: 0BH17EZ Insertion of Endotracheal Airway into Trachea, Via Natural or Artificial Opening (ICD-10-PCS; 2020-08-17)
DX: A41.9 Sepsis, unspecified organism (principal); R65.21 Severe sepsis with septic shock; E87.5 Hyperkalemia; J96.01 Acute respiratory failure with hypoxia; N17.0 Acute kidney failure with tubular necrosis; J93.9 Pneumothorax, unspecified; D62 Acute posthemorrhagic anemia; E43 Unspecified severe protein-calorie malnutrition; D61.818 Other pancytopenia; E83.39 Other disorders of phosphorus metabolism; E83.42 Hypomagnesemia; M89.9 Disorder of bone, unspecified; R13.10 Dysphagia, unspecified; Z99.11 Dependence on respirator [ventilator] status; Z86.73 Personal history of transient ischemic attack (TIA), and cerebral infarction without residual deficits; Z51.5 Encounter for palliative care; G92 Toxic encephalopathy; F32.9 Major depressive disorder, single episode, unspecified; I10 Essential (primary) hypertension; Z86.16 Personal history of COVID-19; J18.9 Pneumonia, unspecified organism; N39.0 Urinary tract infection, site not specified; E88.09 Other disorders of plasma-protein metabolism, not elsewhere classified; L40.9 Psoriasis, unspecified; E87.2 Acidosis; L89.154 Pressure ulcer of sacral region, stage 4; L89.816 Pressure-induced deep tissue damage of head; K92.2 Gastrointestinal hemorrhage, unspecified; I47.1 Supraventricular tachycardia; I21.A1 Myocardial infarction type 2; E83.9 Disorder of mineral metabolism, unspecified; N13.9 Obstructive and reflux uropathy, unspecified; I46.9 Cardiac arrest, cause unspecified; E87.1 Hypo-osmolality and hyponatremia; E11.9 Type 2 diabetes mellitus without complications; D65 Disseminated intravascular coagulation [defibrination syndrome]; E87.4 Mixed disorder of acid-base balance; Z79.84 Long term (current) use of oral hypoglycemic drugs; I48.92 Unspecified atrial flutter; L89.894 Pressure ulcer of other site, stage 4; B95.61 Methicillin susceptible Staphylococcus aureus infection as the cause of diseases classified elsewhere
CPT/HCPCS: 31720; 36415; 36569; 36600; 71045-TC; 76770-TC; 80048-TC; 80053-TC; 80061-TC; 80076-TC; 80202-TC; 81001; 82040-TC; 82248-TC; 82272-TC; 82533; 82728-TC; 82784; 82803-TC; 82962-TC; 83540-TC; 83605-TC; 83735-TC; 83880; 84100-TC; 84155; 84165; 84443-TC; 84478-TC; 84484-TC; 85025-TC; 85027-TC; 85385-TC; 85396; 85610-TC; 85730-TC; 86334; 86850-TC; 87040-TC; 87070-TC; 87081-TC; 87086-TC; 90935-TC; 92950-TC; 93307-TC; 94002-TC; 94003-TC; 94640-TC; 94760-TC; 94762-TC; 94799-TC; 97112-TC; 97530-TC; 99082-TC; A6253; A6403; C9113; C9803; G0378; J0153; J0171; J0692; J1100; J1160; J1200; J1265; J1644; J1720; J1815; J2150; J2185; J2270; J2370; J3370; J3475; J3480; J3490; J7030; J7040; J7050; J7060; J7070; P9016-BL; U0003